=== PATIENT | female | born 1980 | race Hispanic/Latino ===

== ENCOUNTER 2018-03-10 10:39 | Observation (INO) | payer MEDICAID ==
--- NOTE | 2018-03-10 10:52 | ED PDOC ---
Arrival/HPI - General Time Seen by Provider: 03/10/18 10:44 Historian: Patient - History of Present Illness Narrative History of Present Illness (Text): 03/10/18 10:45 37 y/o female, pmh including nasal bone fracture, psychiaric history of alcohol abuse, nkda, c/o upper abdominal pain x 2 days. Aching and sharp pain, on and off, no nausea or vomiting, admits fever, no chest pain or shortness of breath, no night sweat, no rash, no objective fever, no coughing, no recent traveling. Pt. stated that she had total hysterectomy 02/11/2018 at [facility] [place] which with complication of bladder laceration?, quiroz for 3 weeks with 2 different types of oral antibiotics (pt. doesn't remember which ones), quiroz removed and on the macrobid now. Pt. has been taking motrin 800mg for the past 2 days for the chronic myalgia and back pain. Past Medical History - Provider Review Nursing Documentation Reviewed: Yes - Infectious Disease Hx of Infectious Diseases: None - Cardiac Hx Cardiac Disorders: No - Pulmonary Hx Respiratory Disorders: No - Neurological Hx Neurological Disorder: No - HEENT Hx HEENT Disorder: No - Renal Hx Renal Disorder: No - Endocrine/Metabolic Hx Endocrine Disorders: Yes Hx Hypothyroidism: Yes - Hematological/Oncological Hx Blood Disorders: No - Integumentary Hx Dermatological Disorder: No - Musculoskeletal/Rheumatological Hx Musculoskeletal Disorders: No - Gastrointestinal Hx Gastrointestinal Disorders: No - Genitourinary/Gynecological Hx Genitourinary Disorders: No - Psychiatric Hx Psychophysiologic Disorder: Yes Hx Depression: Yes (post ) Hx Substance Use: No - Surgical History Other/Comment: uterine fibroids, foot surgery - Anesthesia Hx Anesthesia: Yes Hx Anesthesia Reactions: No Hx Malignant Hyperthermia: No Family/Social History - Physician Review Nursing Documentation Reviewed: Yes Family/Social History: Unknown Family HX Smoking Status: Never Smoked Hx Alcohol Use: Yes Hx Substance Use: No Allergies/Home Meds Allergies/Adverse Reactions: Allergies No Known Allergies Allergy (Verified 03/10/18 10:54) Home Medications: Home Meds Medication Instructions Recorded Confirmed Meloxicam [Mobic] 7.5 mg PO DAILY 03/10/18 03/10/18 Nitrofurantoin Monohyd/M-Cryst 100 mg PO DAILY 03/10/18 03/10/18 [Nitrofurantoin Monohydrate/Macrocrystals] Quetiapine Fumarate [Seroquel] 25 mg PO BID 03/10/18 03/10/18 RX: DULoxetine [Cymbalta] 120 mg PO DAILY 03/10/18 03/10/18 RX: Gabapentin [Neurontin] 600 mg PO DAILY 03/10/18 03/10/18 Review of Systems - Review of Systems Constitutional: absent: Fatigue, Fevers Eyes: absent: Vision Changes ENT: absent: Hearing Changes, Rhinorrhea Respiratory: absent: SOB, Cough Gastrointestinal: Abdominal Pain. absent: Diarrhea, Nausea, Vomiting Skin: absent: Rash, Pruritis Neurological: absent: Headache Psychiatric: absent: Anxiety, Depression, Suicidal Ideation Physical Exam Vital Signs Reviewed: Yes Vital Signs Temp Pulse Resp BP Pulse Ox 03/10/18 14:01 106 H 18 119/65 99 03/10/18 12:49 99.3 F 102 H 18 114/67 100 03/10/18 10:54 98.2 F 109 H 19 115/78 100 Temperature: Afebrile Blood Pressure: Normal Pulse: Regular Respiratory Rate: Normal Appearance: Positive for: Well-Appearing, Non-Toxic, Comfortable Pain Distress: Moderate Mental Status: Positive for: Alert and Oriented X 3 - Systems Exam Head: Present: Atraumatic, Normocephalic Pupils: Present: PERRL Extroacular Muscles: Present: EOMI Conjunctiva: Present: Normal Mouth: Present: Moist Mucous Membranes Neck: Present: Normal Range of Motion Respiratory/Chest: Present: Clear to Auscultation, Good Air Exchange. No: Respiratory Distress, Accessory Muscle Use Cardiovascular: Present: Regular Rate and Rhythm, Normal S1, S2. No: Murmurs Abdomen: Present: Tenderness (+epigastric and epigastric, negative mcburney tenderness). No: Distention, Peritoneal Signs, Rebound, Guarding Back: Present: Normal Inspection. No: CVA Tenderness, Midline Tenderness, Paraspinal Tenderness, Pain with Leg Raise, Decubitus Ulcer Upper Extremity: Present: Normal Inspection. No: Cyanosis, Edema Lower Extremity: Present: Normal Inspection. No: Edema Neurological: Present: GCS=15, CN II-XII Intact, Speech Normal, Motor Func Grossly Intact, Gait Normal, Memory Normal Skin: Present: Warm, Dry, Normal Color. No: Rashes Psychiatric: Present: Alert, Oriented x 3, Normal Insight, Normal Concentration Medical Decision Making ED Course and Treatment: 03/10/18 10:55 -labs/lipase/alcohol/ua -abdominal sonogram -IVF/pepcid/zofran/morphine -Observe and reassess 03/10/18 13:58 -Urine hcg is negative -Abdominal sonogram show: Findings suggest mild fatty hepatic infiltration however other infiltrative hepatocellular disease process not excluded. -labs show no acute finding except wbc 14.5, Mg is 1.5 (MgSu 1gm IV ordered) -UA show +UTI, urine culture with IV rocephine ordered -Drug screen is positive for the cannabinoid. -Pt. fail the outpatient oral antibiotics treatment, fever and has abdominal pain from oral nsaids, will admit for pending urine culture and IV antibiotic. -Chris hospitalist. 03/10/18 14:08 -I spoke to DR. Lemons about the case/labs/radiology result, agreed on the admission and will follow up the culture, will admit to his service. -I discussed with DR. Reyes about the case, he will put in the admission order. - Lab Interpretations Lab Results: 03/10/18 11:10 03/10/18 11:10 Lab Results 03/10/18 11:11: Urine Opiates Screen Negative, Urine Methadone Screen Negative, Ur Barbiturates Screen Negative, Ur Phencyclidine Scrn Negative, Ur Amphetamines Screen Negative, U Benzodiazepines Scrn Negative, U Oth Cocaine Metabols Negative, U Cannabinoids Screen Positive H 03/10/18 11:10: WBC 14.5 H D, RBC 4.06, Hgb 11.5 L, Hct 34.9 L, MCV 86.0, MCH 28.3, MCHC 33.0, RDW 14.0, Plt Count 196, MPV 12.1 H, Gran % 73.2 H, Lymph % ( Auto) 15.4 L, [place] % (Auto) 10.3 H, Eos % (Auto) 0.8 L, Baso % (Auto) 0.3, Gran # 10.58 H, Lymph # (Auto) 2.2, [place] # (Auto) 1.5 H, Eos # (Auto) 0.1, Baso # ( Auto) 0.04 03/10/18 11:10: Salicylates < 1 L, Acetaminophen < 10.0 L 03/10/18 11:10: Sodium 137, Potassium 4.2, Chloride 101, Carbon Dioxide 24, Anion Gap 17, BUN 5 L, Creatinine 0.7, Est GFR ( Amer) > 60, Est GFR (Non -Af Amer) > 60, Random Glucose 154 H, Calcium 9.2, Magnesium 1.5 L, Total Bilirubin 0.7, AST 15, ALT 30, Alkaline Phosphatase 111, Total Creatine Kinase 62, Total Protein 7.5, Albumin 4.0, Globulin 3.5, Albumin/Globulin Ratio 1.2, Lipase 43 03/10/18 11:00: Urine Color Yellow, Urine Appearance Clear, Urine pH 6.0, Ur Specific [place] 1.025, Urine Protein 100 H, Urine Glucose (UA) Negative, Urine Ketones Negative, Urine Blood Trace-intact H, Urine Nitrate Positive H, Urine Bilirubin Negative, Urine Urobilinogen 0.2, Ur Leukocyte Esterase Large H, Urine RBC 1 - 3, Urine WBC Tntc, Ur Epithelial Cells Many, Urine Bacteria Mod I have reviewed the lab results: Yes Interpretation: Abnormal lab values - RAD Interpretation Radiology Orders: 03/10/18 11:03 ABDOMEN COMPLETE [US] Stat HISTORY: Upper abdominal pain COMPARISON: None. TECHNIQUE: Sonographic evaluation of the abdomen. FINDINGS: LIVER: Measures 15.2 cm. Smooth contour with slight increased hepatic echotexture suggesting fatty infiltration however other infiltrative hepatic cellular disease process not excluded. . No hepatic masses seen on images presented. . No significant intrahepatic bile duct dilatation. GALLBLADDER: Unremarkable. No gallstones. No pericholecystic fluid collections. No evidence sonographic Smith sign COMMON BILE DUCT: Measures 2.9 mm. No stones. No dilatation. PANCREAS: Unremarkable as visualized. No mass. No ductal dilatation. RIGHT KIDNEY: Measures 11.5 x 4.2 x 5.0cm. Normal echogenicity. No calculus, mass, or hydronephrosis. LEFT KIDNEY: Measures 10.4 x 6.1 x 5.0 cm. Normal echogenicity. No calculus, mass, or hydronephrosis. SPLEEN: Spleen is upper limits of normal in size measuring approximately 12 cm. Spleen exhibits normal contour and echotexture. No splenic masses seen on images presented. AORTA: Aorta not visualized IVC: IVC not visualized OTHER FINDINGS: None. IMPRESSION: Findings suggest mild fatty hepatic infiltration however other infiltrative hepatocellular disease process not excluded. Electric Fork Operator: Radiologist - Medication Orders Current Medication Orders: Discontinued Medications Acetaminophen (Tylenol 325mg Tab) 650 mg PO STAT STA Stop: 03/10/18 13:38 Last Admin: 03/10/18 14:01 Dose: 650 mg MAR Pain/Vitals Document 03/10/18 14:01 JESSICA (Rec: 03/10/18 14:01 JESSICA GORDON-PC) Pain Reassessment Is This A Pain ReAssessment? No Sleep Is patient sleeping during reassessment? No Presence of Pain Presence of Pain Yes Famotidine (Pepcid) 20 mg IVP STAT STA Stop: 03/10/18 10:58 Last Admin: 03/10/18 11:31 Dose: 20 mg IVP Administration Document 03/10/18 11:31 JESSICA (Rec: 03/10/18 11:31 JESSICA GORDON-PC) Charges for Administration # of IVP Administrations 1 Sodium Chloride (Sodium Chloride 0.9%) 1,000 mls @ 999 mls/hr IV .Q1H1M STA Stop: 03/10/18 11:57 Last Admin: 03/10/18 11:30 Dose: 999 mls/hr eMAR Start Stop Document 03/10/18 11:30 JESSICA (Rec: 03/10/18 11:30 JESSICA GORDON-PC) Intravenous Solution Start Date 03/10/18 Start Time 11:30 End Date 03/10/18 End time 12:30 Total Infusion Time 60 Magnesium Sulfate/Dextrose (Magnesium Sulfate 1 Gm/100 Ml D5w) 1 gm in 100 mls @ 100 mls/hr IVPB ONCE ONE Stop: 03/10/18 13:12 Last Admin: 03/10/18 13:07 Dose: 100 mls/hr eMAR Start Stop Document 03/10/18 13:07 JESSICA (Rec: 03/10/18 13:07 JESSICA GORDON-PC) Intravenous Solution Start Date 03/10/18 Start Time 13:07 End Date 03/10/18 End time 14:07 Total Infusion Time 60 Ceftriaxone Sodium (Rocephin 1 Gram Ivpb) 1 gm in 100 mls @ 200 mls/hr IVPB STAT STA PRN Reason: Protocol Stop: 03/10/18 12:43 Last Admin: 03/10/18 12:42 Dose: 200 mls/hr eMAR Start Stop Document 03/10/18 12:42 JESSICA (Rec: 03/10/18 12:42 JESSICA GORDON-PC) Intravenous Solution Start Date 03/10/18 Start Time 12:42 End Date 03/10/18 End time 13:15 Total Infusion Time 33 Morphine Sulfate (Morphine) 5 mg IVP STAT STA Stop: 03/10/18 11:27 Last Admin: 03/10/18 11:32 Dose: 5 mg [facility] Pain Assessment Document 03/10/18 11:32 SZA (Rec: 03/10/18 11:33 JESSICA GORDON-PC) Pain Reassessment Is this a pain reassessment? No Sleep Is patient sleeping during reassessment? No Presence of Pain Presence of Pain Yes IVP Administration Document 03/10/18 11:32 JESSICA (Rec: 03/10/18 11:33 JESSICA GORDON-PC) Charges for Administration # of IVP Administrations 1 Re-Assess: THIAGO Pain Assessment Document 03/10/18 12:32 SZA (Rec: 03/10/18 13:08 JESSICA GORDON-PC) Pain Reassessment Is this a pain reassessment? No Sleep Is patient sleeping during reassessment? No Presence of Pain Presence of Pain Yes Pain Scale Used Pain Scale Used Numeric Description Description Intermittent Intensity of Pain at present 4 Ondansetron HCl (Zofran Inj) 4 mg IVP STAT STA Stop: 03/10/18 10:58 Last Admin: 03/10/18 11:30 Dose: 4 mg IVP Administration Document 03/10/18 11:30 SZJamey (Rec: 03/10/18 11:31 JESSICA [id number]) Charges for Administration # of IVP Administrations 1 - PA / ELECTRICAL DESIGNER DRAFTER / Resident Statement MD/DO has reviewed & agrees with the documentation as recorded. Disposition/Present on Arrival - Present on Arrival Any Indicators Present on Arrival: No History of DVT/PE: No History of Uncontrolled Diabetes: No Urinary Catheter: No History of Decub. Ulcer: No History Surgical Site Infection Following: None - Disposition Have Diagnosis and Disposition been Completed?: Yes Diagnosis: UTI (urinary tract infection), Failure of outpatient treatment, Leukocytosis Disposition: HOSPITALIZED Disposition Time: 10:56 Patient Plan: Admission, Observation Patient Problems: Current Active Problems Problem Status Onset UTI (urinary tract infection) Acute Failure of outpatient treatment Acute Leukocytosis Acute Condition: STABLE
[2018-03-10 10:55] VITALS: BMI 29.9
[2018-03-10] MEDS ORDERED: Sodium Chloride 0.9% 1,000 ML IV STA (10:57)
[2018-03-10 11:17] LABS: URINE BILIRUBIN NEGATIVE (NEGATIVE); URINE BLOOD TRACE-INTACT (NEGATIVE); URINE GLUCOSE (UA) NEGATIVE (NEGATIVE); URINE LEUKOCYTE ESTERASE LARGE Leu/uL (NEGATIVE); URINE PROTEIN 100 mg/dL (<30 mg/dL); URINE UROBILINOGEN 0.2 E.U./dL (<1 E.U./dL)
[2018-03-10 11:18] LABS: URINE APPEARANCE CLEAR (CLEAR); URINE COLOR YELLOW (YELLOW)
[2018-03-10 11:26] LABS: URINE BACTERIA MOD (NEG); URINE EPITHELIAL CELLS MANY /hpf (0-5); URINE WBC TNTC /hpf (0-6)
[2018-03-10 11:49] LABS: BASO # 0.04 K/mm3 (0.0-2.0); BASO % 0.3 % (0.0-3.0); EOS # 0.1 (0.0-0.7); EOS % 0.8 % (1.5-5.0); GRAN # 10.58 (1.4-6.5); GRAN % 73.2 % (50.0-68.0); HEMOGLOBIN 11.5 g/dL (12.0-16.0); LYMPH # 2.2 (1.2-3.4); LYMPH % 15.4 % (22.0-35.0); MEAN CORPUSCULAR HEMOGLOBIN 28.3 pg (25.0-35.0); MEAN PLATELET VOLUME 12.1 fl (7.0-11.0); MONO # 1.5 (0.1-0.6); MONO % 10.3 % (1.0-6.0); RBC 4.06 10^6/uL (3.5-6.1); WHITE BLOOD COUNT 14.5 10^3/ul (4.5-11.0)
[2018-03-10 12:09] LABS: ALB/GLOB RATIO 1.2 (1.1-1.8); ALT/SGPT 30 U/L (7-56); AST/SGOT 15 U/L (14-36); BLOOD UREA NITROGEN 5 mg/dL (7-21); CALCIUM 9.2 mg/dL (8.4-10.5); GFR AFRICAN-AMERICAN > 60; GFR NON-AFRICAN AMERICAN > 60; LIPASE 43 U/L (23-300)
[2018-03-10] MEDS ORDERED: Magnesium Sulfate 1 gm in D5W 1 GM/100 ML BAG IVPB ONE (12:13)
[2018-03-10] MEDS ORDERED: cefTRIAXone 1 gm 1 GM/100 ML BAG IVPB STA (12:14)
[2018-03-10 12:20] LABS: BARBITURATES, UR NEGATIVE (NEGATIVE); BENZODIAZEPINES, UR NEGATIVE (NEGATIVE); OPIATES, UR NEGATIVE (NEGATIVE); PHENCYCLIDINE, UR NEGATIVE (NEGATIVE)
[2018-03-10 12:47] LABS: ACETAMINOPHEN < 10.0 ug/ml (10.0-20.0); SALICYLATE < 1 mg/dL (2.0-20.0)
--- NOTE | 2018-03-10 13:57 | US ---
HISTORY: Upper abdominal pain COMPARISON: None. TECHNIQUE: Sonographic evaluation of the abdomen. FINDINGS: LIVER: Measures 15.2 cm. Smooth contour with slight increased hepatic echotexture suggesting fatty infiltration however other infiltrative hepatic cellular disease process not excluded. . No hepatic masses seen on images presented. . No significant intrahepatic bile duct dilatation. GALLBLADDER: Unremarkable. No gallstones. No pericholecystic fluid collections. No evidence sonographic Smith sign COMMON BILE DUCT: Measures 2.9 mm. No stones. No dilatation. PANCREAS: Unremarkable as visualized. No mass. No ductal dilatation. RIGHT KIDNEY: Measures 11.5 x 4.2 x 5.0cm. Normal echogenicity. No calculus, mass, or hydronephrosis. LEFT KIDNEY: Measures 10.4 x 6.1 x 5.0 cm. Normal echogenicity. No calculus, mass, or hydronephrosis. SPLEEN: Spleen is upper limits of normal in size measuring approximately 12 cm. Spleen exhibits normal contour and echotexture. No splenic masses seen on images presented. AORTA: Aorta not visualized IVC: IVC not visualized OTHER FINDINGS: None. IMPRESSION: Findings suggest mild fatty hepatic infiltration however other infiltrative hepatocellular disease process not excluded.
--- NOTE | 2018-03-10 14:57 | CP.PCM.HP ---
<Jaskaran Avelar - Last Filed: 03/10/18 14:52> History of Present Illness - History of Present Illness History of Present Illness: 37 year old female with past medical history of fibromyalgia and depression presents to the hospital for 2 day history of abdominal pain. Patient states pain started at rest and woke her from sleep. Pain is nonradiating and rated 6/ 10. Pain is intermittent and described as sharp in nature. Patient took ibuprofen for pain, but it did not help. Patient underwent hysterectomy 1 month ago at [facility] [place] due to heavy menses. Patient had chronic indwelling quiroz for 3 weeks and was removed 1 week ago. Patient was prescribed Macrobid at this time. Today, patient admits to pain and discomfort upon urination. Patient also admits to subjective fever at home. Abdominal pain not associated with eating. Denies chest pain, shortness of breath, nausea, vomiting, diarrhea, syncope, hematuria, headache, changes in vision. PMD: Dr. Vasquez PMH: Fibromyalgia, depression PSH: uterine cyst removal, bunion removal, hysterectomy FMH: Noncontributory Allergies: NKDA Social hx: Former alcohol abuse, sober 1 year. 1/2 ppd x 1 year. Occasional marijuana use. Present on Admission - Present on Admission Any Indicators Present on Admission: No Review of Systems - Review of Systems Review of Systems: 12 point ROS as per HPI, otherwise negative Past Patient History - Infectious Disease Hx of Infectious Diseases: None - Past Social History Smoking Status: Never Smoked - CARDIAC Hx Cardiac Disorders: No - PULMONARY Hx Respiratory Disorders: No - NEUROLOGICAL Hx Neurological Disorder: No - HEENT Hx HEENT Problems: No - RENAL Hx Chronic Kidney Disease: No - ENDOCRINE/METABOLIC Hx Endocrine Disorders: Yes Hx Hypothyroidism: Yes - HEMATOLOGICAL/ONCOLOGICAL Hx Blood Disorders: No - INTEGUMENTARY Hx Dermatological Problems: No - MUSCULOSKELETAL/RHEUMATOLOGICAL Hx Musculoskeletal Disorders: No - GASTROINTESTINAL Hx Gastrointestinal Disorders: No - GENITOURINARY/GYNECOLOGICAL Hx Genitourinary Disorders: No - PSYCHIATRIC Hx Psychophysiologic Disorder: Yes Hx Depression: Yes (post ) Hx Substance Use: No - SURGICAL HISTORY Other/Comment: uterine fibroids, foot surgery - ANESTHESIA Hx Anesthesia: Yes Hx Anesthesia Reactions: No Hx Malignant Hyperthermia: No Meds Allergies/Adverse Reactions: Allergies Allergy/AdvReac Type Severity Reaction Status Date / Time No Known Allergies Allergy Verified 03/10/18 10:54 Physical Exam - Constitutional Appears: Non-toxic, No Acute Distress - Head Exam Head Exam: ATRAUMATIC, NORMAL INSPECTION, NORMOCEPHALIC - Eye Exam Eye Exam: EOMI, Normal appearance, PERRL - ENT Exam ENT Exam: Mucous Membranes Moist, Normal Exam - Respiratory Exam Respiratory Exam: Clear to Auscultation Bilateral, NORMAL BREATHING PATTERN - Cardiovascular Exam Cardiovascular Exam: RRR, +S1, +S2 - GI/Abdominal Exam GI & Abdominal Exam: Normal Bowel Sounds, Soft. absent: Distended, Firm, Guarding, Rebound Additional comments: Tenderness to palpation in suprapubic region - Extremities Exam Extremities exam: Positive for: normal inspection - Back Exam Back exam: absent: CVA tenderness (L), CVA tenderness (R) - Neurological Exam Neurological exam: Alert, CN II-XII Intact, Oriented x3 - Psychiatric Exam Psychiatric exam: Normal Affect, Normal Mood - Skin Skin Exam: Intact, Normal Color, Warm Results - Vital Signs Recent Vital Signs: Last Vital Signs Temp 99.3 F 03/10/18 12:49 Pulse 106 H 03/10/18 14:01 Resp 18 03/10/18 14:01 BP 119/65 03/10/18 14:01 Pulse Ox 99 03/10/18 14:01 - Labs Result Diagrams: 03/10/18 11:10 03/10/18 11:10 Labs: Laboratory Results - last 24 hr 03/10/18 03/10/18 03/10/18 11:00 11:10 11:10 WBC RBC Hgb Hct MCV MCH MCHC RDW Plt Count MPV Gran % Lymph % (Auto) [place] % (Auto) Eos % (Auto) Baso % (Auto) Gran # Lymph # (Auto) [place] # (Auto) Eos # (Auto) Baso # (Auto) Sodium 137 Potassium 4.2 Chloride 101 Carbon Dioxide 24 Anion Gap 17 BUN 5 L Creatinine 0.7 Est GFR ( Amer) > 60 Est GFR (Non-Af Amer) > 60 Random Glucose 154 H Calcium 9.2 Magnesium 1.5 L Total Bilirubin 0.7 AST 15 ALT 30 Alkaline Phosphatase 111 Total Creatine Kinase 62 Total Protein 7.5 Albumin 4.0 Globulin 3.5 Albumin/Globulin Ratio 1.2 Lipase 43 Urine Color Yellow Urine Appearance Clear Urine pH 6.0 Ur Specific [place] 1.025 Urine Protein 100 H Urine Glucose (UA) Negative Urine Ketones Negative Urine Blood Trace-intact H Urine Nitrate Positive H Urine Bilirubin Negative Urine Urobilinogen 0.2 Ur Leukocyte Esterase Large H Urine RBC 1 - 3 Urine WBC Tntc Ur Epithelial Cells Many Urine Bacteria Mod Salicylates < 1 L Urine Opiates Screen Urine Methadone Screen Acetaminophen < 10.0 L Ur Barbiturates Screen Ur Phencyclidine Scrn Ur Amphetamines Screen U Benzodiazepines Scrn U Oth Cocaine Metabols U Cannabinoids Screen 03/10/18 03/10/18 11:10 11:11 WBC 14.5 H D RBC 4.06 Hgb 11.5 L Hct 34.9 L MCV 86.0 MCH 28.3 MCHC 33.0 RDW 14.0 Plt Count 196 MPV 12.1 H Gran % 73.2 H Lymph % (Auto) 15.4 L [place] % (Auto) 10.3 H Eos % (Auto) 0.8 L Baso % (Auto) 0.3 Gran # 10.58 H Lymph # (Auto) 2.2 [place] # (Auto) 1.5 H Eos # (Auto) 0.1 Baso # (Auto) 0.04 Sodium Potassium Chloride Carbon Dioxide Anion Gap BUN Creatinine Est GFR ( Amer) Est GFR (Non-Af Amer) Random Glucose Calcium Magnesium Total Bilirubin AST ALT Alkaline Phosphatase Total Creatine Kinase Total Protein Albumin Globulin Albumin/Globulin Ratio Lipase Urine Color Urine Appearance Urine pH Ur Specific [place] Urine Protein Urine Glucose (UA) Urine Ketones Urine Blood Urine Nitrate Urine Bilirubin Urine Urobilinogen Ur Leukocyte Esterase Urine RBC Urine WBC Ur Epithelial Cells Urine Bacteria Salicylates Urine Opiates Screen Negative Urine Methadone Screen Negative Acetaminophen Ur Barbiturates Screen Negative Ur Phencyclidine Scrn Negative Ur Amphetamines Screen Negative U Benzodiazepines Scrn Negative U Oth Cocaine Metabols Negative U Cannabinoids Screen Positive H Assessment & Plan - Assessment and Plan (Free Text) Plan: 37 year old female with past medical history of fibromyalgia and depression presents with complicated UTI. Patient failed outpatient treatment with Macrobid. Will await cultures and treat with empiric antibiotics. 1. Complicated UTI Rocephin Blood and urine cultures 2. Fibromyalgia Restart home regimen of Cymbalta and Gabapentin Toradol prn for pain 3. Depression Seroquel 4. Prophylaxis Protonix SCDs Rosio, PGY-2 <Bao Lemons A - Last Filed: 03/10/18 15:29> Results - Vital Signs Recent Vital Signs: Last Vital Signs Temp 99.3 F 03/10/18 12:49 Pulse 106 H 03/10/18 14:01 Resp 18 03/10/18 14:01 BP 119/65 03/10/18 14:01 Pulse Ox 99 03/10/18 14:01 - Labs Result Diagrams: 03/10/18 11:10 03/10/18 11:10 Attending/Attestation - Attestation I have personally seen and examined this patient.: Yes I have fully participated in the care of the patient.: Yes I have reviewed all pertinent clinical information: Yes Notes (Text): 03/10/18 15:26 37 year old female with past medical history of fibromyalgia, depression and recent hysterectomy with chronic quiroz which was recently removed presents with complaint of abdominal pain; found to have UTI. She was recently on macrobid for UTI. She is started on rocephin while awaiting Ucx. Leukocytosis likely secondary to above. US abdomen showed mild fatty infiltrate. Continue with home medications for depression and fibromyalgia. Bao Lemons MD Hospitalist.
[2018-03-11] MEDS ORDERED: Pantoprazole 40 mg EC Tab PO SCH (06:00)
[2018-03-11 07:03] LABS: HEMOGLOBIN 10.4 g/dL (12.0-16.0); MEAN CELL VOLUME 86.1 fl (80.0-105.0); MEAN CORPUSCULAR HEMOGLOBIN 27.7 pg (25.0-35.0); MEAN CORPUSCULAR HGB CONC 32.2 g/dl (31.0-37.0); MEAN PLATELET VOLUME 12.1 fl (7.0-11.0); RBC 3.75 10^6/uL (3.5-6.1); RED CELL DISTRIBUTION WIDTH 13.9 % (11.5-14.5); WHITE BLOOD COUNT 11.2 10^3/ul (4.5-11.0)
[2018-03-11 08:19] LABS: ALBUMIN 3.5 g/dL (3.0-4.8); ALT/SGPT 29 U/L (7-56); AST/SGOT 19 U/L (14-36); BLOOD UREA NITROGEN 9 mg/dL (7-21); CALCIUM 8.5 mg/dL (8.4-10.5); GFR AFRICAN-AMERICAN > 60; GFR NON-AFRICAN AMERICAN > 60
[2018-03-11 08:37] VITALS: BP 125/81; PULSE 72; RESP 20; TEMP 98.2; O2SAT 100
[2018-03-11] MEDS ORDERED: cefTRIAXone 1 gm 1 GM/100 ML BAG IVPB SCH (10:00)
--- NOTE | 2018-03-11 10:52 | CP.PCM.DIS ---
<Jay Rosas - Last Filed: 03/11/18 13:34> Provider - Provider Date of Admission: 03/10/18 14:16 Attending physician: Bao Lemons MD Time Spent in preparation of Discharge (in minutes): 40 Diagnosis - Discharge Diagnosis (1) Failure of outpatient treatment Status: Acute Priority: High (2) Leukocytosis Status: Acute Priority: Medium (3) UTI (urinary tract infection) Status: Acute Priority: Medium Hospital Course - Lab Results Lab Results: Most Recent Lab Values WBC 11.2 10^3/ul (4.5-11.0) H D 03/11/18 06:40 RBC 3.75 10^6/uL (3.5-6.1) 03/11/18 06:40 Hgb 10.4 g/dL (12.0-16.0) L 03/11/18 06:40 Hct 32.3 % (36.0-48.0) L 03/11/18 06:40 MCV 86.1 fl (80.0-105.0) 03/11/18 06:40 MCH 27.7 pg (25.0-35.0) 03/11/18 06:40 MCHC 32.2 g/dl (31.0-37.0) 03/11/18 06:40 RDW 13.9 % (11.5-14.5) 03/11/18 06:40 Plt Count 158 10^3/uL (120.0-450.0) 03/11/18 06:40 MPV 12.1 fl (7.0-11.0) H 03/11/18 06:40 Gran % 73.2 % (50.0-68.0) H 03/10/18 11:10 Lymph % (Auto) 15.4 % (22.0-35.0) L 03/10/18 11:10 Centre % (Auto) 10.3 % (1.0-6.0) H 03/10/18 11:10 Eos % (Auto) 0.8 % (1.5-5.0) L 03/10/18 11:10 Baso % (Auto) 0.3 % (0.0-3.0) 03/10/18 11:10 Gran # 10.58 (1.4-6.5) H 03/10/18 11:10 Lymph # (Auto) 2.2 (1.2-3.4) 03/10/18 11:10 Centre # (Auto) 1.5 (0.1-0.6) H 03/10/18 11:10 Eos # (Auto) 0.1 (0.0-0.7) 03/10/18 11:10 Baso # (Auto) 0.04 K/mm3 (0.0-2.0) 03/10/18 11:10 Sodium 139 mmol/L (132-148) 03/11/18 06:40 Potassium 4.5 mmol/L (3.6-5.0) 03/11/18 06:40 Chloride 105 mmol/L (98-107) 03/11/18 06:40 Carbon Dioxide 25 mmol/L (21-33) 03/11/18 06:40 Anion Gap 14 (10-20) 03/11/18 06:40 BUN 9 mg/dL (7-21) 03/11/18 06:40 Creatinine 0.7 mg/dl (0.7-1.2) 03/11/18 06:40 Est GFR ( Amer) > 60 03/11/18 06:40 Est GFR (Non-Af Amer) > 60 03/11/18 06:40 Random Glucose 164 mg/dL (70-110) H 03/11/18 06:40 Calcium 8.5 mg/dL (8.4-10.5) 03/11/18 06:40 Magnesium 1.8 mg/dL (1.7-2.2) 03/11/18 06:40 Total Bilirubin 0.4 mg/dL (0.2-1.3) 03/11/18 06:40 AST 19 U/L (14-36) 03/11/18 06:40 ALT 29 U/L (7-56) 03/11/18 06:40 Alkaline Phosphatase 115 U/L (38-126) 03/11/18 06:40 Total Creatine Kinase 62 U/L (35-230) 03/10/18 11:10 Total Protein 6.9 g/dL (5.8-8.3) 03/11/18 06:40 Albumin 3.5 g/dL (3.0-4.8) 03/11/18 06:40 Globulin 3.4 gm/dL 03/11/18 06:40 Albumin/Globulin Ratio 1.0 (1.1-1.8) L 03/11/18 06:40 Lipase 43 U/L (23-300) 03/10/18 11:10 Urine Color Yellow (YELLOW) 03/10/18 11:00 Urine Appearance Clear (CLEAR) 03/10/18 11:00 Urine pH 6.0 (4.7-8.0) 03/10/18 11:00 Ur Specific Danube 1.025 (1.005-1.035) 03/10/18 11:00 Urine Protein 100 mg/dL (<30 mg/dL) H 03/10/18 11:00 Urine Glucose (UA) Negative mg/dL (NEGATIVE) 03/10/18 11:00 Urine Ketones Negative mg/dL (NEGATIVE) 03/10/18 11:00 Urine Blood Trace-intact (NEGATIVE) H 03/10/18 11:00 Urine Nitrate Positive (NEGATIVE) H 03/10/18 11:00 Urine Bilirubin Negative (NEGATIVE) 03/10/18 11:00 Urine Urobilinogen 0.2 E.U./dL (<1 E.U./dL) 03/10/18 11:00 Ur Leukocyte Esterase Large Adriana/uL (NEGATIVE) H 03/10/18 11:00 Urine RBC 1 - 3 /hpf (0-2) 03/10/18 11:00 Urine WBC Tntc /hpf (0-6) 03/10/18 11:00 Ur Epithelial Cells Many /hpf (0-5) 03/10/18 11:00 Urine Bacteria Mod (NEG) 03/10/18 11:00 Salicylates < 1 mg/dL (2.0-20.0) L 03/10/18 11:10 Urine Opiates Screen Negative (NEGATIVE) 03/10/18 11:11 Urine Methadone Screen Negative (NEGATIVE) 03/10/18 11:11 Acetaminophen < 10.0 ug/ml (10.0-20.0) L 03/10/18 11:10 Ur Barbiturates Screen Negative (NEGATIVE) 03/10/18 11:11 Ur Phencyclidine Scrn Negative (NEGATIVE) 03/10/18 11:11 Ur Amphetamines Screen Negative (NEGATIVE) 03/10/18 11:11 U Benzodiazepines Scrn Negative (NEGATIVE) 03/10/18 11:11 U Oth Cocaine Metabols Negative (NEGATIVE) 03/10/18 11:11 U Cannabinoids Screen Positive (NEGATIVE) H 03/10/18 11:11 - Hospital Course Hospital Course: Patient is 37 F with history of fibromyalgia who presented to the [facility] emergency department with complaints of dysuria and suprapubic pain s/p quiroz removal #2. 4 weeks prior patient had a hysterectomy at [facility] which was complicated with ureter damage. 2 days after hysterectomy patient underwent ureteral stent placement by urology. Patient then went to [facility] emergency department for two episodes of hematuria. Patient went a third time for voiding cystouregram which was negative, had quiroz removed and then began experiencing fevers and suprapubic pain two days after which made her decide to come to the [facility] emergency department for further evaluation. Urinalysis was done which revealed urinary tract infection; to note patient was placed on macrobid during her course of stay at [facility], however with the continued presence of nitrates and WBCs in urine patient was treated for failed outpatient treatment and was therefore started on rocephin. Patient's WBC count is decreasing and patient is no longer experiencing signs of UTI (lack of fever, dysuria, and suprapubic pain ). Therefore patient will be discharged with a script for levaquin. Will order EKG for baseline QTc before prescribing levaquin. Will instruct patient to not partake in intense physical activity while being on levaquin. Will update patient on urine cultures and if positive will discuss change of therapy. Patient endorses upper epigastric pain. Recommended protonix since patient as of late has been consuming ibuprofen for her urinary pain as well as mobic for her arthritic pain. Plan of discharge was discussed with patient and patient was then discharged. Case discussed with Dr. Vesta Rosas PGY1 Discharge Exam - Head Exam Head Exam: ATRAUMATIC, NORMAL INSPECTION, NORMOCEPHALIC - Eye Exam Eye Exam: EOMI, Normal appearance - Respiratory Exam Respiratory Exam: NORMAL BREATHING PATTERN, UNREMARKABLE. absent: Decreased Breath Sounds, Wheezes - Cardiovascular Exam Cardiovascular Exam: REGULAR RHYTHM, +S1, +S2 - GI/Abdominal Exam GI & Abdominal Exam: Normal Bowel Sounds, Unremarkable - Back Exam Back exam: NORMAL INSPECTION, tenderness. absent: rash noted - Neurological Exam Neurological exam: Alert, CN II-XII Intact, Oriented x3 - Psychiatric Exam Psychiatric exam: Normal Affect, Normal Mood - Skin Skin Exam: Normal Color, Warm Discharge Plan - Discharge Medications Prescriptions: levoFLOXacin [Levaquin] 750 mg PO DAILY #5 tab Pantoprazole [Protonix] 40 mg PO DAILY #14 ect - Follow Up Plan Condition: STABLE Disposition: HOME/ ROUTINE Instructions: Heart Healthy Diet, Why Vaccines Are Important for Everyone, Urinary Tract Infection in Women (DC), Leukocytosis (DC), Dysuria (GEN) Additional Instructions: Ms. Higgins, thank you for letting us take care of you today. Your provider was Dr. Rosas. You were treated for your urinary tract infection which failed outpatient therapy initially. The emergency medical care you received today was directed at your acute symptoms. If you were prescribed any medication, please fill it and take as directed. It may take several days for your symptoms to resolve. Return to the Emergency Department if your symptoms worsen, do not improve, or if you have any other problems. Please contact your doctor or call one of the physicians/clinics you have been referred to that are listed on the Patient Visit Information form that is included in your discharge packet. Bring any paperwork you were given at discharge with you along with any medications you are taking to your follow up visit. Our treatment cannot replace ongoing medical care by a primary care provider (PCP) outside of the emergency department. Things to keep in mind: 1) Be careful with physical activity as levaquin can increases chances of tendon injury. 2)Start taking protonix to overcome gastrointestinal upset caused by taking mobic and ibuprofen. 3)Remember to follow up with your OBGYN and Urologist. Thank you for allowing the [facility] team to be part of your care today. If you had an X-Ray or CT scan: A Radiologist will review the ED reading if any change in treatment is needed we will contact you. If you had a blood, urine, or wound culture: It will take several days for the results, if any change in treatment is needed we will contact you. If you had an STI test: It will take 48 hours for the results. Please call after 1 week if you have not heard back. Referrals: Talon Hahn MD [Staff Provider] - <Bao Lemons - Last Filed: 03/11/18 13:55> Provider - Provider Date of Admission: 03/10/18 14:16 Attending physician: Bao Lemons MD Hospital Course - Lab Results Lab Results: Most Recent Lab Values WBC 11.2 10^3/ul (4.5-11.0) H D 03/11/18 06:40 RBC 3.75 10^6/uL (3.5-6.1) 03/11/18 06:40 Hgb 10.4 g/dL (12.0-16.0) L 03/11/18 06:40 Hct 32.3 % (36.0-48.0) L 03/11/18 06:40 MCV 86.1 fl (80.0-105.0) 03/11/18 06:40 MCH 27.7 pg (25.0-35.0) 03/11/18 06:40 MCHC 32.2 g/dl (31.0-37.0) 03/11/18 06:40 RDW 13.9 % (11.5-14.5) 03/11/18 06:40 Plt Count 158 10^3/uL (120.0-450.0) 03/11/18 06:40 MPV 12.1 fl (7.0-11.0) H 03/11/18 06:40 Gran % 73.2 % (50.0-68.0) H 03/10/18 11:10 Lymph % (Auto) 15.4 % (22.0-35.0) L 03/10/18 11:10 Centre % (Auto) 10.3 % (1.0-6.0) H 03/10/18 11:10 Eos % (Auto) 0.8 % (1.5-5.0) L 03/10/18 11:10 Baso % (Auto) 0.3 % (0.0-3.0) 03/10/18 11:10 Gran # 10.58 (1.4-6.5) H 03/10/18 11:10 Lymph # (Auto) 2.2 (1.2-3.4) 03/10/18 11:10 Centre # (Auto) 1.5 (0.1-0.6) H 03/10/18 11:10 Eos # (Auto) 0.1 (0.0-0.7) 03/10/18 11:10 Baso # (Auto) 0.04 K/mm3 (0.0-2.0) 03/10/18 11:10 Sodium 139 mmol/L (132-148) 03/11/18 06:40 Potassium 4.5 mmol/L (3.6-5.0) 03/11/18 06:40 Chloride 105 mmol/L (98-107) 03/11/18 06:40 Carbon Dioxide 25 mmol/L (21-33) 03/11/18 06:40 Anion Gap 14 (10-20) 03/11/18 06:40 BUN 9 mg/dL (7-21) 03/11/18 06:40 Creatinine 0.7 mg/dl (0.7-1.2) 03/11/18 06:40 Est GFR ( Amer) > 60 03/11/18 06:40 Est GFR (Non-Af Amer) > 60 03/11/18 06:40 Random Glucose 164 mg/dL (70-110) H 03/11/18 06:40 Calcium 8.5 mg/dL (8.4-10.5) 03/11/18 06:40 Magnesium 1.8 mg/dL (1.7-2.2) 03/11/18 06:40 Total Bilirubin 0.4 mg/dL (0.2-1.3) 03/11/18 06:40 AST 19 U/L (14-36) 03/11/18 06:40 ALT 29 U/L (7-56) 03/11/18 06:40 Alkaline Phosphatase 115 U/L (38-126) 03/11/18 06:40 Total Creatine Kinase 62 U/L (35-230) 03/10/18 11:10 Total Protein 6.9 g/dL (5.8-8.3) 03/11/18 06:40 Albumin 3.5 g/dL (3.0-4.8) 03/11/18 06:40 Globulin 3.4 gm/dL 03/11/18 06:40 Albumin/Globulin Ratio 1.0 (1.1-1.8) L 03/11/18 06:40 Lipase 43 U/L (23-300) 03/10/18 11:10 Urine Color Yellow (YELLOW) 03/10/18 11:00 Urine Appearance Clear (CLEAR) 03/10/18 11:00 Urine pH 6.0 (4.7-8.0) 03/10/18 11:00 Ur Specific Danube 1.025 (1.005-1.035) 03/10/18 11:00 Urine Protein 100 mg/dL (<30 mg/dL) H 03/10/18 11:00 Urine Glucose (UA) Negative mg/dL (NEGATIVE) 03/10/18 11:00 Urine Ketones Negative mg/dL (NEGATIVE) 03/10/18 11:00 Urine Blood Trace-intact (NEGATIVE) H 03/10/18 11:00 Urine Nitrate Positive (NEGATIVE) H 03/10/18 11:00 Urine Bilirubin Negative (NEGATIVE) 03/10/18 11:00 Urine Urobilinogen 0.2 E.U./dL (<1 E.U./dL) 03/10/18 11:00 Ur Leukocyte Esterase Large Adriana/uL (NEGATIVE) H 03/10/18 11:00 Urine RBC 1 - 3 /hpf (0-2) 03/10/18 11:00 Urine WBC Tntc /hpf (0-6) 03/10/18 11:00 Ur Epithelial Cells Many /hpf (0-5) 03/10/18 11:00 Urine Bacteria Mod (NEG) 03/10/18 11:00 Salicylates < 1 mg/dL (2.0-20.0) L 03/10/18 11:10 Urine Opiates Screen Negative (NEGATIVE) 03/10/18 11:11 Urine Methadone Screen Negative (NEGATIVE) 03/10/18 11:11 Acetaminophen < 10.0 ug/ml (10.0-20.0) L 03/10/18 11:10 Ur Barbiturates Screen Negative (NEGATIVE) 03/10/18 11:11 Ur Phencyclidine Scrn Negative (NEGATIVE) 03/10/18 11:11 Ur Amphetamines Screen Negative (NEGATIVE) 03/10/18 11:11 U Benzodiazepines Scrn Negative (NEGATIVE) 03/10/18 11:11 U Oth Cocaine Metabols Negative (NEGATIVE) 03/10/18 11:11 U Cannabinoids Screen Positive (NEGATIVE) H 03/10/18 11:11 Attending/Attestation - Attestation I have personally seen and examined this patient.: Yes I have fully participated in the care of the patient.: Yes I have reviewed all pertinent clinical information, including history, physical exam and plan: Yes Notes (Text): 03/11/18 13:51 37 year old female with past medical history of fibromyalgia, depression and recent hysterectomy with chronic quiroz which was recently removed presented with complaint of epigastric and suprapubic pain. US abdomen showed mild fatty infiltrate. She was found to have UTI and started on rocephin. The following day her symptoms and leukocytosis improved. She is discharged home to follow up with her pmd, urologist and OB/rough patcher. Continue with antibiotics as prescribed; will call with results of her urine culture. Recommended to limit NSAID use, educated on risks of gastritis. Started on PPI and recommended if epigastric pain persists follow up with GI for possible EGD. Bao Lemons MD Hospitalist.
--- NOTE | 2018-03-11 13:04 | CARD ---
APPROVED REPORT EKG Measurement Heart [id number] ID [id number] <Conclusion> Normal sinus rhythm Q in 3 WNL
[2018-03-11] MEDS ORDERED: POLYETHYLENE GLYCOL 3350 17 GM/Dose PACKET PO ONE ×2 (13:26→13:27)
== END 2018-03-11 14:46 | disposition home or self-care (01) ==
LOC: ED 10:39 → ERH 14:16 → 5RNO 16:03
PROVIDERS: ADMIT Internal Medicine; ATTEND Internal Medicine
DX: N39.0 Urinary tract infection, site not specified (principal); M79.7 Fibromyalgia; E03.9 Hypothyroidism, unspecified; F12.90 Cannabis use, unspecified, uncomplicated; F32.9 Major depressive disorder, single episode, unspecified; R10.13 Epigastric pain
CPT/HCPCS: 36415; 76700; 80053; 80324; 80329; 80345; 80346; 80349; 80353; 80358; 80361; 81001; 82550; 83690; 83735; 83992; 85025; 85027; 87040; 87086; 87181; 93005; 96361; 96365; 96366; 96367; 96375; 96376; 99285; G0378; J0696; J1885; J2270; J2405; J3475; J7030

== ENCOUNTER 2018-03-25 09:56 | Inpatient (IN) | payer MEDICAID ==
[2018-03-25 09:56] VITALS: BMI 29.9
[2018-03-25] MEDS ORDERED: Sodium Chloride 0.9% 1,000 ML IV STA ×2 (10:21→11:57)
[2018-03-25 10:58] LABS: BASO # 0.06 K/mm3 (0.0-2.0); BASO % 0.4 % (0.0-3.0); EOS % 0.2 % (1.5-5.0); GRAN # 12.95 (1.4-6.5); GRAN % 77.6 % (50.0-68.0); HEMOGLOBIN 11.3 g/dL (12.0-16.0); LYMPH # 2.7 (1.2-3.4); LYMPH % 16.1 % (22.0-35.0); MEAN CELL VOLUME 82.8 fl (80.0-105.0); MEAN CORPUSCULAR HEMOGLOBIN 27.4 pg (25.0-35.0); MEAN PLATELET VOLUME 11.6 fl (7.0-11.0); MONO % 5.7 % (1.0-6.0); PH,URINE 8.5 (4.7-8.0); RBC 4.13 10^6/uL (3.5-6.1); RED CELL DISTRIBUTION WIDTH 13.9 % (11.5-14.5); URINE BILIRUBIN NEGATIVE (NEGATIVE); URINE BLOOD NEGATIVE (NEGATIVE); URINE GLUCOSE (UA) NEGATIVE (NEGATIVE); URINE LEUKOCYTE ESTERASE MODERATE Leu/uL (NEGATIVE); URINE PROTEIN NEGATIVE mg/dL (<30 mg/dL); URINE UROBILINOGEN 0.2 E.U./dL (<1 E.U./dL); WHITE BLOOD COUNT 16.7 10^3/ul (4.5-11.0)
[2018-03-25 10:59] LABS: VENOUS BLOOD GAS BASE EXCESS 0.4 mmol/L (0.0-2.0); VENOUS BLOOD GAS PO2 31 mm/Hg (30-55)
[2018-03-25 11:00] LABS: URINE APPEARANCE CLEAR (CLEAR); URINE COLOR YELLOW (YELLOW)
[2018-03-25 11:12] LABS: ALB/GLOB RATIO 1.2 (1.1-1.8); ALBUMIN 4.2 g/dL (3.0-4.8); ALT/SGPT 30 U/L (7-56); AST/SGOT 24 U/L (14-36); BLOOD UREA NITROGEN 6 mg/dL (7-21); CALCIUM 9.3 mg/dL (8.4-10.5); GFR AFRICAN-AMERICAN > 60; GFR NON-AFRICAN AMERICAN > 60
[2018-03-25] MEDS ORDERED: Vancomycin 1gm in NS 250ml 1 GM/250 ML BAG IVPB STA (11:19)
[2018-03-25] MEDS ORDERED: cefTRIAXone 1 gm 1 GM/100 ML BAG IVPB STA (11:21)
[2018-03-25 11:26] LABS: INR 1.19 (0.93-1.08); PROTHROMBIN TIME 13.7 SECONDS (9.4-12.5)
[2018-03-25 11:27] LABS: PARTIAL THROMBOPLASTIN TIME 29.6 Seconds (25.1-36.5)
[2018-03-25 11:35] LABS: URINE BACTERIA MANY (NEG); URINE RBC 0 - 2 /hpf (0-2)
--- NOTE | 2018-03-25 12:01 | ED PDOC ---
Arrival/HPI - General Chief Complaint: Fever Time Seen by Provider: 03/25/18 10:13 Historian: Patient - History of Present Illness Narrative History of Present Illness (Text): 03/25/18 12:58 37yo female with pmhx of depression, fibromyalgia present with complaint of generalized body ache and subjective fever since yesterday. States the symptoms are typical of her fibromyalgia, but worse today. Notes that she took all her medications, but vomited s/p. She admits to left sided lower back pain that started yesterday with dysuria. Denies focal pain, focal weakness, abdominal pain, diarrhea, constipation, cough, chills, chest pain, any other complaint. Past Medical History - Provider Review Nursing Documentation Reviewed: Yes - Infectious Disease Hx of Infectious Diseases: None - Cardiac Hx Cardiac Disorders: No - Pulmonary Hx Respiratory Disorders: No - Neurological Hx Neurological Disorder: No - HEENT Hx HEENT Disorder: No - Renal Hx Renal Disorder: No - Endocrine/Metabolic Hx Endocrine Disorders: Yes Hx Hypothyroidism: Yes - Hematological/Oncological Hx Blood Disorders: No - Integumentary Hx Dermatological Disorder: No - Musculoskeletal/Rheumatological Hx Falls: No - Gastrointestinal Hx Gastrointestinal Disorders: No - Genitourinary/Gynecological Hx Genitourinary Disorders: No - Psychiatric Hx Psychophysiologic Disorder: Yes Hx Depression: Yes (post ) Hx Substance Use: Yes (Marijuana) - Surgical History Hx Hysterectomy: Yes Other/Comment: uterine fibroids, foot surgery - Anesthesia Hx Anesthesia: Yes Hx Anesthesia Reactions: No Hx Malignant Hyperthermia: No Family/Social History - Physician Review Nursing Documentation Reviewed: Yes Family/Social History: Unknown Family HX Smoking Status: Heavy Smoker > 10 Cigarettes Daily Hx Alcohol Use: No ("Sober for a year and a half") Hx Substance Use: Yes (Marijuana) Allergies/Home Meds Allergies/Adverse Reactions: Allergies No Known Allergies Allergy (Verified 03/10/18 10:54) Home Medications: Home Meds Medication Instructions Recorded Confirmed DULoxetine [Cymbalta] 120 mg PO DAILY 03/10/18 03/25/18 Gabapentin [Neurontin] 600 mg PO TID 03/10/18 03/25/18 Meloxicam [Mobic] 7.5 mg PO DAILY 03/10/18 03/25/18 Quetiapine Fumarate [Seroquel] 25 mg PO TID 03/10/18 03/25/18 Review of Systems - Physician Review All systems were reviewed & negative as marked: Yes - Review of Systems Constitutional: Fatigue, Fevers Eyes: Normal ENT: Normal Respiratory: Normal Cardiovascular: Normal Gastrointestinal: Normal Genitourinary Female: Dysuria. absent: Frequency, Hematuria Musculoskeletal: Back Pain Skin: Normal Neurological: Normal Endocrine: Normal Hemo/Lymphatic: Normal Psychiatric: Normal Physical Exam Vital Signs Reviewed: Yes Vital Signs Temp Pulse Resp BP Pulse Ox 03/25/18 14:10 99.3 F 86 18 118/61 03/25/18 13:01 99.3 F 03/25/18 12:50 98.3 F 86 18 118/61 98 03/25/18 12:01 101.3 F H 03/25/18 11:25 101.3 F H 90 18 120/64 98 03/25/18 10:05 100.4 F H 115 H 18 114/79 99 Temperature: Febrile Blood Pressure: Normal Pulse: Tachycardic Respiratory Rate: Normal Appearance: Positive for: Well-Appearing, Non-Toxic, Comfortable Pain Distress: None Mental Status: Positive for: Alert and Oriented X 3 - Systems Exam Head: Present: Atraumatic, Normocephalic Pupils: Present: PERRL Extroacular Muscles: Present: EOMI Conjunctiva: Present: Normal Mouth: Present: Moist Mucous Membranes Neck: Present: Normal Range of Motion Respiratory/Chest: Present: Clear to Auscultation, Good Air Exchange. No: Respiratory Distress, Accessory Muscle Use Cardiovascular: Present: Regular Rate and Rhythm, Normal S1, S2. No: Murmurs Abdomen: No: Tenderness, Distention, Peritoneal Signs, Rebound, Guarding, McBurney's Point Tender, Rovsing's Sign Present Back: Present: Normal Inspection. No: CVA Tenderness Upper Extremity: Present: Normal Inspection. No: Cyanosis, Edema Lower Extremity: Present: Normal Inspection. No: Edema Neurological: Present: GCS=15, CN II-XII Intact, Speech Normal Skin: Present: Warm, Dry, Normal Color. No: Rashes Psychiatric: Present: Alert, Oriented x 3, Normal Insight, Normal Concentration Medical Decision Making ED Course and Treatment: 03/25/18 19:51 PT in ED for stated history. she was tachy and febrile on presentation. Labs was ordered, reviewed and she had leukocytosis. Lactate was also elevated and code sepsis was called. She had leukocyte and small WBC in her urine with UTI symptoms. this could be the source of the infection. She was hydrated. Vancomycin and Rocephin was given. Phosphorous was repleted. EKG sinus tachy @101bpm CXR NAD Case was DW Dr. Fregoso and he accepted pt for admit. - Lab Interpretations Lab Results: 03/25/18 10:30 03/25/18 10:30 Lab Results 03/25/18 11:00: Procalcitonin 0.06 L 03/25/18 10:30: Lipase 75 03/25/18 10:30: Sodium 137, Chloride 99, Potassium 4.0, Carbon Dioxide 23, Anion Gap 19, BUN 6 L, Creatinine 0.7, Est GFR ( Amer) > 60, Est GFR (Non -Af Amer) > 60, Random Glucose 147 H, Calcium 9.3, Phosphorus 1.4 L*, Magnesium 1.5 L, Total Bilirubin 1.0, AST 24, ALT 30, Alkaline Phosphatase 106, Total Creatine Kinase 60, Total Protein 7.8, Albumin 4.2, Globulin 3.6, Albumin/ Globulin Ratio 1.2 03/25/18 10:30: pO2 31, VBG pH 7.50 H, VBG pCO2 29.0 L, VBG HCO3 22.6, VBG Total CO2 23.5, VBG O2 Sat (Calc) 71.7 H, VBG Base Excess 0.4, VBG Potassium 3.7 , Sodium 133.0, Chloride 100.0, Glucose 152 H, Lactate 2.8 H, FiO2 21.0, Venous Blood Potassium 3.7 03/25/18 10:30: Urine Color Yellow, Urine Appearance Clear, Urine pH 8.5, Ur Specific [place] 1.010, Urine Protein Negative, Urine Glucose (UA) Negative, Urine Ketones Negative, Urine Blood Negative, Urine Nitrate Negative, Urine Bilirubin Negative, Urine Urobilinogen 0.2, Ur Leukocyte Esterase Moderate H, Urine RBC 0 - 2, Urine WBC 10 - 15, Ur Epithelial Cells 6 - 8, Urine Bacteria Many, Urine Other Uyeast 03/25/18 10:30: PT 13.7 H, INR 1.19 H, APTT 29.6 03/25/18 10:30: WBC 16.7 H D, RBC 4.13, Hgb 11.3 L, Hct 34.2 L, MCV 82.8 D, MCH 27.4, MCHC 33.0, RDW 13.9, Plt Count 291, MPV 11.6 H, Gran % 77.6 H, Lymph % (Auto) 16.1 L, Crowley % (Auto) 5.7, Eos % (Auto) 0.2 L, Baso % (Auto) 0.4, Gran # 12.95 H, Lymph # (Auto) 2.7, Crowley # (Auto) 1.0 H, Eos # (Auto) 0.0, Baso # ( Auto) 0.06, ESR 60 H - RAD Interpretation Radiology Orders: 03/25/18 11:56 CHEST PORTABLE [RAD] Stat 03/25/18 12:44 ABDOMEN & PELVIS [ABD & PELVIS IV CONTRAST ONLY] [CT] Urgent - Medication Orders Current Medication Orders: Acetaminophen (Tylenol 325mg Tab) 650 mg PO Q6 PRN PRN Reason: Fever >100.4 F Duloxetine HCl (Cymbalta) 120 mg PO DAILY [place] Last Admin: 03/25/18 15:31 Dose: 120 mg Gabapentin (Neurontin) 600 mg PO TID [place] PRN Reason: Protocol Last Admin: 03/25/18 17:13 Dose: 600 mg Behavioural Document 03/25/18 17:13 MCV (Rec: 03/25/18 17:13 MCV [facility] [id number] Behavior Behavior for Medication: Anxiety Continuous pacing/restlessness Sodium Chloride (Sodium Chloride 0.9%) 1,000 mls @ 150 mls/hr IV .Q6H40M [place] Last Admin: 03/25/18 13:07 Dose: 150 mls/hr eMAR Start Stop Document 03/25/18 13:07 LA (Rec: 03/25/18 13:07 LA [facility] [id number] Intravenous Solution Start Date 03/25/18 Start Time 13:07 End Date 03/25/18 Meropenem (Merrem Iv 1 Gm Premix) 50 mls @ 100 mls/hr IVPB Q8 [place] PRN Reason: Protocol Last Admin: 03/25/18 17:14 Dose: 100 mls/hr eMAR Start Stop Document 03/25/18 17:14 MCV (Rec: 03/25/18 17:14 MCV [facility] [id number]) Intravenous Solution Start Date 03/25/18 Start Time 17:14 Meloxicam (Mobic) 7.5 mg PO DAILY [facility] Morphine Sulfate (Morphine) 1 mg IVP Q6H PRN PRN Reason: Pain, moderate (4-7) Morphine Sulfate (Morphine) 2 mg IVP Q6H PRN PRN Reason: Pain, severe (8-10) Last Admin: 03/25/18 17:17 Dose: 2 mg MAR Pain Assessment Document 03/25/18 17:17 MCV (Rec: 03/25/18 17:18 [id number]) Pain Reassessment Is this a pain reassessment? No Presence of Pain Presence of Pain Yes Pain Scale Used Pain Scale Used Numeric Location Pain Location Body Site Generalized Description Description Constant Acceptable Level of Pain 9 Pain Behavior Moaning Irritability Restlessness Facial Grimacing Aggravating Factors Changing Position Alleviating Factors/Management Medication Techniques IVP Administration Document 03/25/18 17:17 MCV (Rec: 03/25/18 17:18 [id number]) Charges for Administration # of IVP Administrations 1 Nicotine (Nicoderm Cq) 1 patch TD DAILY [facility] Last Admin: 03/25/18 15:31 Dose: 1 patch MAR Transdermal Patch Site Document 03/25/18 15:31 MCV (Rec: 03/25/18 15:31 [id number]) Transdermal Patch Site Transdermal Patch Site Right Shoulder Ondansetron HCl (Zofran Inj) 4 mg IVP Q4H PRN PRN Reason: Nausea/Vomiting Pantoprazole Sodium (Protonix Ec Tab) 40 mg PO DAILY [facility] Last Admin: 03/25/18 13:06 Dose: 40 mg Quetiapine Fumarate (Seroquel) 25 mg PO TID [place] PRN Reason: Protocol Last Admin: 03/25/18 17:13 Dose: 25 mg Behavioural Document 03/25/18 17:13 MCV (Rec: 03/25/18 17:13 [id number]) Behavior Behavior for Medication: Anxiety Continuous pacing/restlessness Discontinued Medications Acetaminophen (Tylenol 325mg Tab) 650 mg PO STAT STA Stop: 03/25/18 11:58 Last Admin: 03/25/18 12:01 Dose: 650 mg MAR Pain/Vitals Document 03/25/18 12:01 LA (Rec: 03/25/18 12:01 [place] [email or web address] Pain Reassessment Is This A Pain ReAssessment? No Sleep Is patient sleeping during reassessment? No Presence of Pain Presence of Pain Yes Pain Scale Used Pain Scale Used Numeric Location Pain Location Body Site Generalized Intensity 5 Scale Used Numeric Vitals Temperature (97.6 F-99.6 F) 101.3 F Temperature Source Rectal Re-Assess: MAR Pain/Vitals Document 03/25/18 13:01 LA (Rec: 03/25/18 14:03 LA [email or web address] Pain Reassessment Is This A Pain ReAssessment? Yes Sleep Is patient sleeping during reassessment? No Presence of Pain Presence of Pain No Vitals Temperature (97.6 F-99.6 F) 99.3 F Temperature Source Rectal Sodium Chloride (Sodium Chloride 0.9%) 1,000 mls @ 999 mls/hr IV .Q1H1M STA Stop: 03/25/18 11:21 Last Admin: 03/25/18 10:34 Dose: 999 mls/hr eMAR Start Stop Document 03/25/18 10:34 LA (Rec: 03/25/18 10:35 [facility] Intravenous Solution Start Date 03/25/18 Start Time 10:34 End Date 03/25/18 End time 11:35 Total Infusion Time 61 Ceftriaxone Sodium (Rocephin 1 Gram Ivpb) 1 gm in 100 mls @ 200 mls/hr IVPB STAT STA PRN Reason: Protocol Stop: 03/25/18 11:50 Last Admin: 03/25/18 11:30 Dose: 200 mls/hr eMAR Start Stop Document 03/25/18 11:30 LA (Rec: 03/25/18 11:30 [email or web address] Intravenous Solution Start Date 03/25/18 Start Time 11:30 End Date 03/25/18 End time 12:00 Total Infusion Time 30 Vancomycin HCl (Vancomycin 1gm) 1 gm in 250 mls @ 167 mls/hr IVPB STAT STA PRN Reason: Protocol Stop: 03/25/18 12:48 Last Admin: 03/25/18 12:23 Dose: 167 mls/hr eMAR Start Stop Document 03/25/18 12:23 LA (Rec: 03/25/18 12:23 LA [email or web address] Intravenous Solution Start Date 03/25/18 Start Time 12:23 End Date 03/25/18 End time 13:53 Total Infusion Time 90 Sodium Chloride (Sodium Chloride 0.9%) 1,000 mls @ 999 mls/hr IV .Q1H1M STA Stop: 03/25/18 12:57 Last Admin: 03/25/18 12:14 Dose: 999 mls/hr eMAR Start Stop Document 03/25/18 12:14 LA (Rec: 03/25/18 12:14 LA [email or web address] Intravenous Solution Start Date 03/25/18 Start Time 12:14 End Date 03/25/18 End time 13:15 Total Infusion Time 61 Magnesium Sulfate (Magnesium Sulfate 2 Gm/50 Ml Water) 2 gm in 50 mls @ 50 mls/ hr IVPB ONCE ONE Stop: 03/25/18 13:12 Last Admin: 03/25/18 13:06 Dose: 50 mls/hr eMAR Start Stop Document 03/25/18 13:06 LA (Rec: 03/25/18 13:06 [place] [email or web address] Intravenous Solution Start Date 03/25/18 Start Time 13:06 End Date 03/25/18 End time 14:06 Total Infusion Time 60 Potassium Phosphate 15 mmole/ (Sodium Chloride) 255 mls @ 42.5 mls/hr IVPB ONCE ONE Stop: 03/25/18 18:46 Last Admin: 03/25/18 15:28 Dose: 42.5 mls/hr eMAR Start Stop Document 03/25/18 15:28 MCV (Rec: 03/25/18 15:28 MCV [facility] [id number]) Intravenous Solution Start Date 03/25/18 Start Time 15:28 Ketorolac Tromethamine (Toradol) 30 mg IVP STAT STA Stop: 03/25/18 10:22 Last Admin: 03/25/18 10:35 Dose: 30 mg MAR Pain Assessment Document 03/25/18 10:35 LA (Rec: 03/25/18 10:35 LA [email or web address] Pain Reassessment Is this a pain reassessment? No Sleep Is patient sleeping during reassessment? No Presence of Pain Presence of Pain Yes Pain Scale Used Pain Scale Used Numeric Location Pain Location Body Site Generalized Description Description Constant Intensity of Pain at present 8 Pain Behavior Crying Guarding IVP Administration Document 03/25/18 10:35 LA (Rec: 03/25/18 10:35 LA [place] [id number]) Charges for Administration # of IVP Administrations 1 Re-Assess: THIAGO Pain Assessment Document 03/25/18 11:35 LA (Rec: 03/25/18 11:43 LA [place] [id number]) Pain Reassessment Is this a pain reassessment? Yes Sleep Is patient sleeping during reassessment? No Presence of Pain Presence of Pain Yes Pain Scale Used Pain Scale Used Numeric Location Pain Location Body Eclectic Doctor Generalized Description Description Constant Intensity of Pain at present 5 Pain Behavior Guarding Morphine Sulfate (Morphine) 2 mg IVP Q6H PRN PRN Reason: Pain, moderate (4-7) Ondansetron HCl (Zofran Inj) 4 mg IVP STAT STA Stop: 03/25/18 10:22 Last Admin: 03/25/18 10:35 Dose: 4 mg IVP Administration Document 03/25/18 10:35 LA (Rec: 03/25/18 10:35 LA [place] [id number]) Charges for Administration # of IVP Administrations 1 Pneumococcal Polyvalent Vaccine (Pneumovax 23 Vaccine) 0.5 ml IM .ONCE ONE Stop: 03/25/18 14:42 Disposition/Present on Arrival - Present on Arrival Any Indicators Present on Arrival: No History of DVT/PE: No History of Uncontrolled Diabetes: No Urinary Catheter: No History of Decub. Ulcer: No History Surgical Site Infection Following: None - Disposition Have Diagnosis and Disposition been Completed?: Yes Diagnosis: Sepsis, UTI (urinary tract infection), Leukocytosis Disposition: HOSPITALIZED Disposition Time: 12:00 Patient Plan: Admission Patient Problems: Current Active Problems Problem Status Onset Sepsis Acute Condition: FAIR
[2018-03-25] MEDS ORDERED: Magnesium Sulfate 2 gm/50 ml 2 GM/50 ML BAG IVPB ONE (12:13)
--- NOTE | 2018-03-25 12:20 | CP.PCM.HP ---
<Ashely Trinidad - Last Filed: 03/25/18 14:31> History of Present Illness - History of Present Illness History of Present Illness: History and Physical - Hospitalist Service CC: I've been having fevers and body aches HPI: Patient is a 37 year old female with past medical history of fibromyalgia, depression, recent hysterectomy complicated by bladder injury resulting in chronic quiroz that was removed and Left ureteral stent placement presents to [facility] for fevers and body aches that started last night. Patient states that she took ibuprofen and measured her temp which was 101.3. Patient also reports having Left lower quadrant pain that started last night as well. This morning patient reports having one episode of nausea and bilious vomiting, with loose bowel movements x 3 days. Patient was recently admitted for complicated UTI earlier this month that failed outpatient therapy. Patient was discharged on PO Levaquin and completed the course of antibiotics. Patient was given referral to follow up with outpatient urology but has not followed up yet. She also admits to shortness of breath at this time. Able to speak in completed sentences. Denies headaches, dizziness, cp, palpitations, dysuria. ED Course: Tylenol 650mg x 1, Zofran 4mg x 1, NS bolus x 2 BOW MA[employer]: Dr [place] Allergies: NKDA Medications: Seroquel 25mg PO TID prn, Cymbalta 120mg PO daily, Gabapentin 600mg PO TID Medical History: Fibromylagia, Depression Surgical History: Hysterectomy, uterine cyst removal, bunion removal Social History: Smoked 1ppd, denies alcohol, drug use; lives with ; UTOX on previous admission +Cannabinoids Family History: Denies Present on Admission - Present on Admission Any Indicators Present on Admission: No Past Patient History - Infectious Disease Hx of Infectious Diseases: None - Past Social History Smoking Status: Heavy Smoker > 10 Cigarettes Daily - CARDIAC Hx Cardiac Disorders: No - PULMONARY Hx Respiratory Disorders: No - NEUROLOGICAL Hx Neurological Disorder: No - HEENT Hx HEENT Problems: No - RENAL Hx Chronic Kidney Disease: No - ENDOCRINE/METABOLIC Hx Endocrine Disorders: Yes Hx Hypothyroidism: Yes - HEMATOLOGICAL/ONCOLOGICAL Hx Blood Disorders: No - INTEGUMENTARY Hx Dermatological Problems: No - MUSCULOSKELETAL/RHEUMATOLOGICAL Hx Falls: No - GASTROINTESTINAL Hx Gastrointestinal Disorders: No - GENITOURINARY/GYNECOLOGICAL Hx Genitourinary Disorders: No - PSYCHIATRIC Hx Psychophysiologic Disorder: Yes Hx Depression: Yes (post ) Hx Substance Use: Yes (Marijuana) - SURGICAL HISTORY Hx Hysterectomy: Yes Other/Comment: uterine fibroids, foot surgery - ANESTHESIA Hx Anesthesia: Yes Hx Anesthesia Reactions: No Hx Malignant Hyperthermia: No Meds Allergies/Adverse Reactions: Allergies Allergy/AdvReac Type Severity Reaction Status Date / Time No Known Allergies Allergy Verified 03/10/18 10:54 Physical Exam - Constitutional Appears: No Acute Distress - Head Exam Head Exam: ATRAUMATIC, NORMAL INSPECTION, NORMOCEPHALIC - Eye Exam Eye Exam: EOMI, Normal appearance - ENT Exam ENT Exam: Mucous Membranes Moist - Respiratory Exam Respiratory Exam: Clear to Auscultation Bilateral, NORMAL BREATHING PATTERN. absent: Rales, Rhonchi, Wheezes - Cardiovascular Exam Cardiovascular Exam: REGULAR RHYTHM, +S1, +S2 - GI/Abdominal Exam GI & Abdominal Exam: Normal Bowel Sounds, Soft, Tenderness (LLQ). absent: Distended, Guarding, Rebound, Rigid - Extremities Exam Extremities exam: Positive for: normal inspection, pedal pulses present - Back Exam Back exam: NORMAL INSPECTION. absent: CVA tenderness (L), CVA tenderness (R) - Neurological Exam Neurological exam: Alert, Oriented x3 - Psychiatric Exam Psychiatric exam: Normal Affect, Normal Mood - Skin Skin Exam: Dry, Normal Color, Warm Results - Vital Signs Recent Vital Signs: Last Vital Signs Temp 101.3 F H 03/25/18 12:01 Pulse 90 03/25/18 11:25 Resp 18 03/25/18 11:25 BP 120/64 03/25/18 11:25 Pulse Ox 98 03/25/18 11:25 - Labs Result Diagrams: 03/25/18 10:30 03/25/18 10:30 Labs: Laboratory Results - last 24 hr 03/25/18 03/25/18 03/25/18 10:30 10:30 10:30 WBC 16.7 H D RBC 4.13 Hgb 11.3 L Hct 34.2 L MCV 82.8 D MCH 27.4 MCHC 33.0 RDW 13.9 Plt Count 291 MPV 11.6 H Gran % 77.6 H Lymph % (Auto) 16.1 L [place] % (Auto) 5.7 Eos % (Auto) 0.2 L Baso % (Auto) 0.4 Gran # 12.95 H Lymph # (Auto) 2.7 [place] # (Auto) 1.0 H Eos # (Auto) 0.0 Baso # (Auto) 0.06 ESR 60 H PT 13.7 H INR 1.19 H APTT 29.6 pO2 VBG pH VBG pCO2 VBG HCO3 VBG Total CO2 VBG O2 Sat (Calc) VBG Base Excess VBG Potassium Sodium Chloride Glucose Lactate FiO2 Potassium Carbon Dioxide Anion Gap BUN Creatinine Est GFR ( Amer) Est GFR (Non-Af Amer) Random Glucose Calcium Phosphorus Magnesium Total Bilirubin AST ALT Alkaline Phosphatase Total Creatine Kinase Total Protein Albumin Globulin Albumin/Globulin Ratio Venous Blood Potassium Urine Color Yellow Urine Appearance Clear Urine pH 8.5 Ur Specific Amberson 1.010 Urine Protein Negative Urine Glucose (UA) Negative Urine Ketones Negative Urine Blood Negative Urine Nitrate Negative Urine Bilirubin Negative Urine Urobilinogen 0.2 Ur Leukocyte Esterase Moderate H Urine RBC 0 - 2 Urine WBC 10 - 15 Ur Epithelial Cells 6 - 8 Urine Bacteria Many Urine Other Uyeast 03/25/18 03/25/18 10:30 10:30 WBC RBC Hgb Hct MCV MCH MCHC RDW Plt Count MPV Gran % Lymph % (Auto) [place] % (Auto) Eos % (Auto) Baso % (Auto) Gran # Lymph # (Auto) [place] # (Auto) Eos # (Auto) Baso # (Auto) ESR PT INR APTT pO2 31 VBG pH 7.50 H VBG pCO2 29.0 L VBG HCO3 22.6 VBG Total CO2 23.5 VBG O2 Sat (Calc) 71.7 H VBG Base Excess 0.4 VBG Potassium 3.7 Sodium 133.0 137 Chloride 100.0 99 Glucose 152 H Lactate 2.8 H FiO2 21.0 Potassium 4.0 Carbon Dioxide 23 Anion Gap 19 BUN 6 L Creatinine 0.7 Est GFR ( Amer) > 60 Est GFR (Non-Af Amer) > 60 Random Glucose 147 H Calcium 9.3 Phosphorus 1.4 L* Magnesium 1.5 L Total Bilirubin 1.0 AST 24 ALT 30 Alkaline Phosphatase 106 Total Creatine Kinase 60 Total Protein 7.8 Albumin 4.2 Globulin 3.6 Albumin/Globulin Ratio 1.2 Venous Blood Potassium 3.7 Urine Color Urine Appearance Urine pH Ur Specific Amberson Urine Protein Urine Glucose (UA) Urine Ketones Urine Blood Urine Nitrate Urine Bilirubin Urine Urobilinogen Ur Leukocyte Esterase Urine RBC Urine WBC Ur Epithelial Cells Urine Bacteria Urine Other Assessment & Plan - Assessment and Plan (Free Text) Assessment: A/P: Patient is a 37 year old female with past medical history of fibromyalgia, depression, complicated UTI presents to [facility] for fevers and body aches with associated N/V and diarrhea. Patient was recently admitted and treated for UTI that failed outpatient therapy. Code Sepsis called in the ED. Patient recieved Vancomycin and Rocephin. Sepsis likely 2/2 to UTI (r/o other intra-abdominal sources) -Stable, Tmax 101.3, currently afebrile -Patient with leukocytosis and elevated lactate -CT abd/pelvis with IV contrast ordered -CXR ordered, f/u report -UA on admission showed moderate leukocyte esterase, +yeast -Prior Urine cultures from grew Enterobacter, sensitivities reviewed -F/U urine cultures, blood cultures, procalcitonin, trend lactate -Tylenol 650mg PO Q6H prn fever -NS at 150cc/hour -ID on consult, help appreciated Abnormal UA/History of complicated UTI -Patient currently with ureteral stent February 2018 -Patient sees Dr Chatman outpatient, plan was to have stent removed in 2 months -F/U urine culture -Urology on consult, help appreciated -ID on consult, help appreciated Left Lower Quadrant pain -CT abd/pelvis ordered -F/U lipase -Pain control: Morphine 2mg Q6H prn, Morphine 1mg Q6H prn -Zofran 4mg Q4H prn nausea -Will advance to liquid diet after CT abd/pelvis Shortness of breath -Likely secondary to anxiety vs pain -O2 sats within normal range -CXR ordered, no infiltrates visualized, f/u official report -Continue to monitor Diarrhea -C diff toxin/antigen ordered -Will consider starting pro-biotic after C diff results Hypomagnesemia/Hypophosphatemia -Kphos 15mmol x 1 dose -Mag sulfate 2mg IVPB x 1 dose -Continue to monitor Tobacco abuse/Marijuana abuse -Patient states that she wants to quit -Counselled on cessation -Nicotine patch -F/U UTOX History of Fibromyalgia/Depression -Continue Cymbalta, Gabapentin, Seroquel GI/DVT ppx: Protonix 40mg PO daily SCDs Plan discussed with Dr Vesta Trinidad DO PGY-1 <Bao Lemons - Last Filed: 03/25/18 14:40> Results - Vital Signs Recent Vital Signs: Last Vital Signs Temp 99.3 F 03/25/18 13:01 Pulse 86 03/25/18 12:50 Resp 18 03/25/18 12:50 BP 118/61 03/25/18 12:50 Pulse Ox 98 03/25/18 12:50 - Labs Result Diagrams: 03/25/18 10:30 03/25/18 10:30 Labs: Laboratory Results - last 24 hr 03/25/18 03/25/18 13:45 14:10 pO2 173 H VBG pH 7.37 VBG pCO2 38.0 L VBG HCO3 22.0 VBG Total CO2 23.2 VBG O2 Sat (Calc) 100.1 H VBG Base Excess -2.9 L VBG Potassium 3.6 Sodium 136.0 Chloride 109.0 H Glucose 99 Lactate 1.5 FiO2 21.0 Venous Blood Potassium 3.6 Urine Methadone Screen Negative Attending/Attestation - Attestation I have personally seen and examined this patient.: Yes I have fully participated in the care of the patient.: Yes I have reviewed all pertinent clinical information: Yes Notes (Text): 03/25/18 14:35 37 year old female with past medical history of fibromyalgia, depression, complicated hysterectomy with ureteral stent and recurrent UTI who presents with fever, lower abdominal pain, nausea, vomiting and diarrhea. She was recently treated for UTI. She is febrile with leukocytosis in ER. UA shows moderate LE. She received vancomycin and rocephin in ER. Will follow up on blood and urine cultures. Will follow up on CXR. ID and urology evaluations are requested. CT abd/pelvis is ordered. Stool studies ordered for diarrhea. Continue with home medications for fibromyalgia and depression. Will replete and repeat lytes. Bao Lemons MD Hospitalist.
[2018-03-25] MEDS ORDERED: Potassium Phosphate 15 MMOLE in Sodium Chloride 0.9% 250 ML IVPB ONE (12:47)
[2018-03-25] MEDS ORDERED: Iohexol 350 MG/100 ML VIAL ONE (12:50)
[2018-03-25] MEDS ORDERED: Morphine 5 MG/ML SYRINGE IVP PRN (12:52)
[2018-03-25] MEDS: Pantoprazole 40 mg EC Tab PO SCH (13:06)
[2018-03-25] MEDS: Sodium Chloride 0.9% 1,000 ML IV SCH (13:07)
[2018-03-25 13:57] LABS: VENOUS BLOOD GAS BASE EXCESS -2.9 mmol/L (0.0-2.0); VENOUS BLOOD GAS PO2 173 mm/Hg (30-55); VENOUS BLOOD PH 7.37 (7.32-7.43)
[2018-03-25 14:38] LABS: BARBITURATES, UR NEGATIVE (NEGATIVE); BENZODIAZEPINES, UR NEGATIVE (NEGATIVE); OPIATES, UR NEGATIVE (NEGATIVE); PHENCYCLIDINE, UR NEGATIVE (NEGATIVE)
[2018-03-25] MEDS ORDERED: Pneumococcal 23-Valent Vaccine IM ONE (14:41)
--- NOTE | 2018-03-25 15:06 | RAD ---
HISTORY: Admission COMPARISON: 11/17/2016 FINDINGS: LUNGS: No active pulmonary disease. PLEURA: No significant pleural effusion identified, no pneumothorax apparent. CARDIOVASCULAR: Normal. OSSEOUS STRUCTURES: No significant abnormalities. VISUALIZED UPPER ABDOMEN: Normal. OTHER FINDINGS: None. IMPRESSION: No active disease. No significant interval change compared to the prior examination(s).
--- NOTE | 2018-03-25 15:10 | CT ---
PROCEDURE: CT Abdomen and Pelvis with contrast HISTORY: LLQ pain, Hx of ureteral stent, r/o abscess COMPARISON: None. TECHNIQUE: Contrast dose: 100 cc of Omni 350 Radiation dose: Total exam DLP = 724 mGy-cm. This CT exam was performed using one or more of the following dose reduction techniques: Automated exposure control, adjustment of the mA and/or kV according to patient size, and/or use of iterative reconstruction technique. FINDINGS: LOWER THORAX: Unremarkable. LIVER: Unremarkable. No gross lesion or ductal dilatation. GALLBLADDER AND BILE DUCTS: Unremarkable. PANCREAS: Unremarkable. No gross lesion or ductal dilatation. SPLEEN: Unremarkable. ADRENALS: Unremarkable. No mass. KIDNEYS AND URETERS: There is a left-sided ureteral stent. There is no hydronephrosis VASCULATURE: Unremarkable. No aortic aneurysm. BOWEL: Unremarkable. No obstruction. No gross mural thickening. APPENDIX: Normal appendix. PERITONEUM: Unremarkable. No free fluid. No free air. LYMPH NODES: Unremarkable. No enlarged lymph nodes. BLADDER: Unremarkable. REPRODUCTIVE: Hysterectomy BONES: No acute fracture. OTHER FINDINGS: None. IMPRESSION: No acute intra-abdominal findings
--- NOTE | 2018-03-25 15:28 | PCM.SEPTIC ---
Sepsis Progress Note - Reassessment Type Date of Evaluation: 03/25/18 Time of Evaluation: 15:00 Reassessment Type: Non-invasive reassessment - Non Invasive Reassessment Were the most recent vital sign reviewed: Yes Vital Sign (Latest): Temp Pulse Resp BP Pulse Ox 98.3 F 88 20 105/66 100 03/25/18 15:06 03/25/18 15:06 03/25/18 15:06 03/25/18 15:06 03/25/18 15:06 Cardiovascular: Yes: Regular Rate, Rhythm Respiratory: Yes: Normal Breath Sounds Capillary Refill: Normal (Less than 2 sec) Pulses: Normal Radial, Normal Dorsalis Pedis, Normal Posterior Tibialis Skin: Normal Color, Warm, Dry
--- NOTE | 2018-03-25 16:19 | PCM.URO ---
Urology Progress Note - Objective Lab Studies: Reviewed (will discuss plans thanks) Lab Results Last 24 Hours: Laboratory Results - last 24 hr 03/25/18 03/25/18 13:45 14:10 pO2 173 H VBG pH 7.37 VBG pCO2 38.0 L VBG HCO3 22.0 VBG Total CO2 23.2 VBG O2 Sat (Calc) 100.1 H VBG Base Excess -2.9 L VBG Potassium 3.6 Sodium 136.0 Chloride 109.0 H Glucose 99 Lactate 1.5 FiO2 21.0 Venous Blood Potassium 3.6 Urine Opiates Screen Negative Urine Methadone Screen Negative Ur Barbiturates Screen Negative Ur Phencyclidine Scrn Negative Ur Amphetamines Screen Negative U Benzodiazepines Scrn Negative U Oth Cocaine Metabols Negative U Cannabinoids Screen Negative Intake & Output: Intake & Output 03/24/18 03/25/18 03/25/18 18:59 06:59 18:59 Weight 180 lb Other: Voiding Method Toilet Vital Signs: Vital Signs - 24 hr 03/25/18 03/25/18 03/25/18 13:01 14:10 14:25 Temperature 99.3 F 99.3 F 99.3 F Pulse Rate 86 86 Respiratory 18 18 Rate Blood Pressure 118/61 121/65 O2 Sat by Pulse 98 Oximetry 03/25/18 15:06 Temperature 98.3 F Pulse Rate 88 Respiratory 20 Rate Blood Pressure 105/66 O2 Sat by Pulse 100 Oximetry
--- NOTE | 2018-03-25 17:10 | CARD ---
APPROVED REPORT EKG Measurement Heart [id number] <Conclusion> Sinus tachycardia Otherwise normal ECG
--- NOTE | 2018-03-25 17:10 | CP.PCM.CON ---
History of Present Illness - History of Present Illness History of Present Illness: 37 year old female with PMH of fibromyalgia, history of depression recently had a vaginal hysterectomy done in February 2018 and the urinary bladder was injured and a left ureteral stent was placed. Since then she has been having left lower quadrant pain occasionally. About 3-4 days ago, the pain became worse, with associated nausea, vomiting, fevers and body aches and left flank pain. The patient was recently treated in early March 2018 for UTI and the patient completed course of Levaquin. The patient denies chest pain, no SOB, no cough or colds, no headache or dizziness, no dysphagia, no blurring of vision. In the ED, urinalysis showed pyuria. Infectious diseases consult is requested to further evaluate and manage. Review of Systems - Review of Systems All systems: reviewed and no additional remarkable complaints except (as per HPI ) Past Patient History - Infectious Disease Hx of Infectious Diseases: None - Past Social History Smoking Status: Heavy Smoker > 10 Cigarettes Daily - CARDIAC Hx Cardiac Disorders: No - PULMONARY Hx Respiratory Disorders: No - NEUROLOGICAL Hx Neurological Disorder: No - HEENT Hx HEENT Problems: No - RENAL Hx Chronic Kidney Disease: No - ENDOCRINE/METABOLIC Hx Endocrine Disorders: Yes Hx Hypothyroidism: Yes - HEMATOLOGICAL/ONCOLOGICAL Hx Blood Disorders: No - INTEGUMENTARY Hx Dermatological Problems: No - MUSCULOSKELETAL/RHEUMATOLOGICAL Hx Falls: No - GASTROINTESTINAL Hx Gastrointestinal Disorders: No - GENITOURINARY/GYNECOLOGICAL Hx Genitourinary Disorders: No - PSYCHIATRIC Hx Psychophysiologic Disorder: Yes Hx Depression: Yes (post ) Hx Substance Use: Yes (Marijuana) - SURGICAL HISTORY Hx Hysterectomy: Yes Other/Comment: uterine fibroids, foot surgery - ANESTHESIA Hx Anesthesia: Yes Hx Anesthesia Reactions: No Hx Malignant Hyperthermia: No Meds Allergies/Adverse Reactions: Allergies Allergy/AdvReac Type Severity Reaction Status Date / Time No Known Allergies Allergy Verified 03/10/18 10:54 - Medications Medications: Current Medications Acetaminophen (Tylenol 325mg Tab) 650 mg PO Q6 PRN PRN Reason: Fever >100.4 F Duloxetine HCl (Cymbalta) 120 mg PO DAILY [facility] Last Admin: 03/25/18 15:31 Dose: 120 mg Gabapentin (Neurontin) 600 mg PO TID RENETTA PRN Reason: Protocol Potassium Phosphate 15 mmole/ (Sodium Chloride) 255 mls @ 42.5 mls/hr IVPB ONCE ONE Stop: 03/25/18 18:46 Last Admin: 03/25/18 15:28 Dose: 42.5 mls/hr Sodium Chloride (Sodium Chloride 0.9%) 1,000 mls @ 150 mls/hr IV .Q6H40M [facility] Last Admin: 03/25/18 13:07 Dose: 150 mls/hr Ceftriaxone Sodium (Rocephin 1 Gram Ivpb) 1 gm in 100 mls @ 100 mls/hr IVPB DAILY [facility] PRN Reason: Protocol Meloxicam (Mobic) 7.5 mg PO DAILY [facility] Morphine Sulfate (Morphine) 1 mg IVP Q6H PRN PRN Reason: Pain, moderate (4-7) Morphine Sulfate (Morphine) 2 mg IVP Q6H PRN PRN Reason: Pain, severe (8-10) Nicotine (Nicoderm Cq) 1 patch TD DAILY [facility] Last Admin: 03/25/18 15:31 Dose: 1 patch Ondansetron HCl (Zofran Inj) 4 mg IVP Q4H PRN PRN Reason: Nausea/Vomiting Pantoprazole Sodium (Protonix Ec Tab) 40 mg PO DAILY [facility] Last Admin: 03/25/18 13:06 Dose: 40 mg Quetiapine Fumarate (Seroquel) 25 mg PO TID [facility] PRN Reason: Protocol Last Admin: 03/25/18 15:31 Dose: 25 mg Physical Exam - Constitutional Appears: Non-toxic, Chronically Ill - Head Exam Head Exam: NORMAL INSPECTION - ENT Exam ENT Exam: Mucous Membranes Moist - Neck Exam Neck exam: Negative for: Lymphadenopathy, Meningismus - Respiratory Exam Respiratory Exam: Decreased Breath Sounds - Cardiovascular Exam Cardiovascular Exam: +S1, +S2 - GI/Abdominal Exam GI & Abdominal Exam: Soft, Tenderness (left lower quadrant). absent: Distended , Firm, Guarding, Rigid - Back Exam Back exam: absent: CVA tenderness (L), CVA tenderness (R) Results - Vital Signs Recent Vital Signs: Last Vital Signs Temp 98.3 F 03/25/18 15:06 Pulse 88 03/25/18 15:06 Resp 20 03/25/18 15:06 BP 105/66 03/25/18 15:06 Pulse Ox 100 03/25/18 15:06 - Labs Result Diagrams: 03/25/18 10:30 06/18/18 10:30 Labs: Laboratory Results - last 24 hr 03/25/18 03/25/18 13:45 14:10 pO2 173 H VBG pH 7.37 VBG pCO2 38.0 L VBG HCO3 22.0 VBG Total CO2 23.2 VBG O2 Sat (Calc) 100.1 H VBG Base Excess -2.9 L VBG Potassium 3.6 Sodium 136.0 Chloride 109.0 H Glucose 99 Lactate 1.5 FiO2 21.0 Venous Blood Potassium 3.6 Urine Opiates Screen Negative Urine Methadone Screen Negative Ur Barbiturates Screen Negative Ur Phencyclidine Scrn Negative Ur Amphetamines Screen Negative U Benzodiazepines Scrn Negative U Oth Cocaine Metabols Negative U Cannabinoids Screen Negative Assessment & Plan - Assessment and Plan (Free Text) Plan: Assessment consider sepsis due to left sided upper UTI / pyelonephritis in this patient with left ureteral stent placed after bladder injury after vaginal hysterectomy in February 2018 fibromyalgia history of depression Plan Started Merrem pending blood and urine cx; CT A/P is negative for acute findings follow up Urology evaluation willl check HIV test will monitor clinically
[2018-03-25] MEDS: Meropenem IV 1 gm in NS 50 ML IVPB SCH ×2 (17:14→23:06)
[2018-03-25] MEDS: Morphine 2 mg/ml ISec IVP PRN (17:17)
[2018-03-26] MEDS: Meropenem IV 1 gm in NS 50 ML IVPB SCH ×3 (05:18→21:33)
[2018-03-26] MEDS: Morphine 2 mg/ml ISec IVP PRN ×3 (05:26→20:02)
[2018-03-26 07:29] LABS: BASO # 0.04 K/mm3 (0.0-2.0); BASO % 0.3 % (0.0-3.0); EOS # 0.1 (0.0-0.7); EOS % 0.6 % (1.5-5.0); GRAN # 8.98 (1.4-6.5); GRAN % 70.9 % (50.0-68.0); HEMOGLOBIN 9.6 g/dL (12.0-16.0); LYMPH # 2.4 (1.2-3.4); MEAN CELL VOLUME 84.3 fl (80.0-105.0); MEAN PLATELET VOLUME 11.8 fl (7.0-11.0); MONO # 1.2 (0.1-0.6); MONO % 9.2 % (1.0-6.0); RBC 3.56 10^6/uL (3.5-6.1); RED CELL DISTRIBUTION WIDTH 14.3 % (11.5-14.5); WHITE BLOOD COUNT 12.7 10^3/ul (4.5-11.0)
[2018-03-26 07:48] LABS: ALB/GLOB RATIO 1.1 (1.1-1.8); ALBUMIN 3.1 g/dL (3.0-4.8); ALT/SGPT 26 U/L (7-56); AST/SGOT 14 U/L (14-36); BLOOD UREA NITROGEN 3 mg/dL (7-21); CALCIUM 7.6 mg/dL (8.4-10.5); GFR AFRICAN-AMERICAN > 60; GFR NON-AFRICAN AMERICAN > 60
[2018-03-26] MEDS: Meloxicam 7.5 MG TAB PO SCH (09:21)
[2018-03-26] MEDS: Pantoprazole 40 mg EC Tab PO SCH (09:25)
[2018-03-26] MEDS ORDERED: cefTRIAXone 1 gm 1 GM/100 ML BAG IVPB SCH (10:00)
--- NOTE | 2018-03-26 10:08 | CP.PCM.PN ---
<Ashely Trinidad - Last Filed: 03/26/18 12:53> Subjective - Date & Time of Evaluation Date of Evaluation: 03/26/18 Time of Evaluation: 10:08 - Subjective Subjective: Internal Medicine Progress Note - Hospitalist Service Patient seen and examined at bedside. Per nursing no acute events overnight. Patient states that she has been having a headache. She spiked a temperature of 102 yesterday. Abdominal pain improving. Ambulating and tolerating diet. Denies dizziness, chills, cp, palpitations, chest pain, palpitations, dysuria. Has not had a bowel movement yet. Objective - Vital Signs/Intake and Output Vital Signs (last 24 hours): Temp Pulse Resp BP Pulse Ox 100 F H 100 H 18 101/56 L 97 03/26/18 06:00 03/26/18 06:00 03/26/18 06:00 03/26/18 06:00 03/26/18 06:00 Intake and Output: 03/26/18 03/26/18 06:59 18:59 Intake Total 2770 Balance 2770 - Medications Medications: Current Medications Acetaminophen (Tylenol 325mg Tab) 650 mg PO Q6 PRN PRN Reason: Fever >100.4 F Last Admin: 03/25/18 20:53 Dose: 650 mg Duloxetine HCl (Cymbalta) 120 mg PO DAILY [facility] Last Admin: 03/26/18 09:21 Dose: 120 mg Gabapentin (Neurontin) 600 mg PO TID RENETTA PRN Reason: Protocol Last Admin: 03/26/18 09:25 Dose: 600 mg Sodium Chloride (Sodium Chloride 0.9%) 1,000 mls @ 150 mls/hr IV .Q6H40M [facility] Last Admin: 03/25/18 13:07 Dose: 150 mls/hr Meropenem (Merrem Iv 1 Gm Premix) 50 mls @ 100 mls/hr IVPB Q8 RENETTA PRN Reason: Protocol Last Admin: 03/26/18 05:18 Dose: 100 mls/hr Meloxicam (Mobic) 7.5 mg PO DAILY [facility] Last Admin: 03/26/18 09:21 Dose: 7.5 mg Morphine Sulfate (Morphine) 1 mg IVP Q6H PRN PRN Reason: Pain, moderate (4-7) Nicotine (Nicoderm Cq) 1 patch TD DAILY [facility] Last Admin: 03/26/18 09:25 Dose: 1 patch Ondansetron HCl (Zofran Inj) 4 mg IVP Q4H PRN PRN Reason: Nausea/Vomiting Pantoprazole Sodium (Protonix Ec Tab) 40 mg PO DAILY [facility] Last Admin: 03/26/18 09:25 Dose: 40 mg Quetiapine Fumarate (Seroquel) 25 mg PO TID RENETTA PRN Reason: Protocol Last Admin: 03/26/18 09:21 Dose: 25 mg - Labs Labs: 03/26/18 07:00 03/26/18 07:00 PT 13.7 SECONDS (9.4-12.5) H 03/25/18 10:30 INR 1.19 (0.93-1.08) H 03/25/18 10:30 APTT 29.6 Seconds (25.1-36.5) 03/25/18 10:30 - Constitutional Appears: Non-toxic, No Acute Distress - Head Exam Head Exam: ATRAUMATIC, NORMAL INSPECTION, NORMOCEPHALIC - Eye Exam Eye Exam: EOMI, Normal appearance - ENT Exam ENT Exam: Mucous Membranes Moist - Neck Exam Neck Exam: Full ROM - Respiratory Exam Respiratory Exam: Clear to Ausculation Bilateral, NORMAL BREATHING PATTERN. absent: Rales, Rhonchi, Wheezes - Cardiovascular Exam Cardiovascular Exam: REGULAR RHYTHM, +S1, +S2 - GI/Abdominal Exam GI & Abdominal Exam: Soft, Tenderness (LLQ), Normal Bowel Sounds. absent: Guarding, Rigid - Extremities Exam Extremities Exam: Full ROM, Normal Inspection - Back Exam Back Exam: NORMAL INSPECTION - Neurological Exam Neurological Exam: Alert, Awake, CN II-XII Intact, Oriented x3 - Psychiatric Exam Psychiatric exam: Normal Affect, Normal Mood - Skin Skin Exam: Dry, Normal Color, Warm Assessment and Plan - Assessment and Plan (Free Text) Assessment: A/P: Patient is a 37 year old female with past medical history of fibromyalgia, depression, complicated UTI presents to [facility] [place] for fevers and body aches with associated N/V and diarrhea. Patient was recently admitted and treated for UTI that failed outpatient therapy. Code Sepsis called in the ED. Patient recieved Vancomycin and Rocephin. SIRS (source unknown) -Stable, Tmax 102, currently afebrile -Patient with leukocytosis and elevated lactate on admission -Leukocytosis 16.7 -> 12.7; Lactate now normal -CT abd/pelvis with IV contrast showed no acute intra-abdominal pathology -CXR showed no active disease -UA on admission showed moderate leukocyte esterase, +yeast -Prior Urine cultures from grew Enterobacter, sensitivities reviewed -Repeat urine cultures showing no growth, blood cultures showing no growth x 24 hours, procalcitonin is low -Antibiotics: Merrem 1gm Q8H -Tylenol 650mg PO Q6H prn fever -F/U HIV -ID on consult, help appreciated Abnormal UA/History of complicated UTI -Patient currently with ureteral stent February 2018 -Patient sees Dr Chatman outpatient, plan was to have stent removed in 2 months -Repeat urine culture showing no growth -Urology on consult, help appreciated -ID on consult, help appreciated Left Lower Quadrant pain -CT abd/pelvis showed no acute intra-abdominal pathology -Pain control: Morphine 1mg Q6H prn -Zofran 4mg Q4H prn nausea -Advance diet as tolerated Shortness of breath -Likely secondary to anxiety vs pain -O2 sats within normal range -CXR showing no active disease -Continue to monitor Diarrhea -C diff toxin/antigen ordered -Will consider starting pro-biotic after C diff results Hypomagnesemia/Hypophosphatemia -Continue to monitor Tobacco abuse/Marijuana abuse -Patient states that she wants to quit -Counselled on cessation -Nicotine patch -UTOX negative History of Fibromyalgia/Depression -Continue Cymbalta, Gabapentin, Seroquel GI/DVT ppx: Protonix 40mg PO daily SCDs Plan discussed with Dr Vesta Trinidad DO PGY-1 <Bao Lemons - Last Filed: 03/26/18 14:29> Objective - Vital Signs/Intake and Output Vital Signs (last 24 hours): Temp Pulse Resp BP Pulse Ox 100 F H 100 H 18 101/56 L 97 03/26/18 06:00 03/26/18 06:00 03/26/18 06:00 03/26/18 06:00 03/26/18 06:00 Intake and Output: 03/26/18 03/26/18 06:59 18:59 Intake Total 2770 Balance 2770 - Medications Medications: Current Medications Acetaminophen (Tylenol 325mg Tab) 650 mg PO Q6 PRN PRN Reason: Fever >100.4 F Last Admin: 03/25/18 20:53 Dose: 650 mg Acetaminophen (Tylenol 325mg Tab) 650 mg PO Q6H PRN PRN Reason: Pain, Mild (1-3) Last Admin: 03/26/18 13:34 Dose: 650 mg Duloxetine HCl (Cymbalta) 120 mg PO DAILY [facility] Last Admin: 03/26/18 09:21 Dose: 120 mg Gabapentin (Neurontin) 600 mg PO TID RENETTA PRN Reason: Protocol Last Admin: 03/26/18 13:42 Dose: 600 mg Meropenem (Merrem Iv 1 Gm Premix) 50 mls @ 100 mls/hr IVPB Q8 RENETTA PRN Reason: Protocol Last Admin: 03/26/18 13:42 Dose: 100 mls/hr Meloxicam (Mobic) 7.5 mg PO DAILY [facility] Last Admin: 03/26/18 09:21 Dose: 7.5 mg Morphine Sulfate (Morphine) 1 mg IVP Q6H PRN PRN Reason: Pain, moderate (4-7) Last Admin: 03/26/18 10:56 Dose: 1 mg Nicotine (Nicoderm Cq) 1 patch TD DAILY [facility] Last Admin: 03/26/18 09:25 Dose: 1 patch Ondansetron HCl (Zofran Inj) 4 mg IVP Q4H PRN PRN Reason: Nausea/Vomiting Pantoprazole Sodium (Protonix Ec Tab) 40 mg PO DAILY [facility] Last Admin: 03/26/18 09:25 Dose: 40 mg Quetiapine Fumarate (Seroquel) 25 mg PO TID [facility] PRN Reason: Protocol Last Admin: 03/26/18 13:41 Dose: 25 mg - Labs Labs: 03/26/18 07:00 03/26/18 07:00 PT 13.7 SECONDS (9.4-12.5) H 03/25/18 10:30 INR 1.19 (0.93-1.08) H 03/25/18 10:30 APTT 29.6 Seconds (25.1-36.5) 03/25/18 10:30 Attending/Attestation - Attestation I have personally seen and examined this patient.: Yes I have fully participated in the care of the patient.: Yes I have reviewed all pertinent clinical information, including history, physical exam and plan: Yes Notes (Text): 03/26/18 14:27 37 year old female with past medical history of fibromyalgia, depression, complicated hysterectomy with ureteral stent and recurrent UTI who presented with fever, lower abdominal pain, nausea, vomiting and diarrhea. UA was suggestive of UTI and she was started on iv antibiotics. CT abd/pelvis was negative for acute findings. Her symptoms and leukocytosis has improved although she continues to have fever overnight. ID is following. UCx/BCx are negative to date. Urology evaluation was also requested; will follow up with recommendations. Continue with home medications for fibromyalgia and depression. Bao Lemons MD Hospitalist.
[2018-03-26] MEDS: Sodium Chloride 0.9% 1,000 ML IV SCH (13:35)
[2018-03-26 23:29] LABS: URINE BILIRUBIN NEGATIVE (NEGATIVE); URINE BLOOD NEGATIVE (NEGATIVE); URINE GLUCOSE (UA) NEGATIVE (NEGATIVE); URINE LEUKOCYTE ESTERASE SMALL Leu/uL (NEGATIVE); URINE PROTEIN NEGATIVE mg/dL (<30 mg/dL); URINE UROBILINOGEN 0.2 E.U./dL (<1 E.U./dL)
[2018-03-26 23:39] LABS: URINE APPEARANCE CLEAR (CLEAR); URINE COLOR YELLOW (YELLOW)
[2018-03-26 23:45] LABS: URINE RBC 0 - 2 /hpf (0-2)
[2018-03-26 23:46] LABS: URINE BACTERIA RARE (NEG)
[2018-03-27] MEDS: Meropenem IV 1 gm in NS 50 ML IVPB SCH ×2 (06:00→13:21)
[2018-03-27 07:17] LABS: BASO # 0.04 K/mm3 (0.0-2.0); BASO % 0.4 % (0.0-3.0); EOS # 0.3 (0.0-0.7); EOS % 2.9 % (1.5-5.0); GRAN # 5.17 (1.4-6.5); GRAN % 58.2 % (50.0-68.0); HEMOGLOBIN 9.7 g/dL (12.0-16.0); LYMPH # 2.7 (1.2-3.4); LYMPH % 30.2 % (22.0-35.0); MEAN CELL VOLUME 84.8 fl (80.0-105.0); MEAN CORPUSCULAR HEMOGLOBIN 26.8 pg (25.0-35.0); MEAN CORPUSCULAR HGB CONC 31.6 g/dl (31.0-37.0); MEAN PLATELET VOLUME 11.6 fl (7.0-11.0); MONO # 0.7 (0.1-0.6); MONO % 8.3 % (1.0-6.0); RBC 3.62 10^6/uL (3.5-6.1); RED CELL DISTRIBUTION WIDTH 14.2 % (11.5-14.5); WHITE BLOOD COUNT 8.9 10^3/ul (4.5-11.0)
--- NOTE | 2018-03-27 07:17 | PN ---
DATE: 03/26/2018 SUBJECTIVE: Patient is in bed, in no acute distress, nontoxic, was seen earlier this morning, room 573, bed 1. PHYSICAL EXAMINATION: VITAL SIGNS: Temperature is 100 and T-max yesterday was 100.8, blood pressure is 103/60, respiratory rate of 18, heart rate of 100. HEENT: Unremarkable. NECK: Supple. LUNGS: Have decreased breath sounds. HEART: Normal S1, S2. ABDOMEN: Soft. LABORATORY DATA: Reveals a white count of 12,700, hemoglobin of 9, platelets of 234. Chemistries reveal a BUN of 3, creatinine of 0.7. Procalcitonin is 0.6. Urinalysis moderate leukocyte esterase . Microbiology reveals urine cultures has no growth. Blood culture has no growth. REVIEW OF ORDERS: Reveals the patient to be on meropenem. ASSESSMENT AND PLAN: A 37-year-old female with history of fibromyalgia, history of depression, history of recent vaginal hysterectomy, left-sided pyelonephritis and urinary tract infection with left ureteral stent after a bladder injury, and vaginal hysterectomy, fibromyalgia and patient currently on meropenem, day #number with negative blood cultures and negative-gram cultures. We will repeat urinalysis and urine culture. Continue on meropenem. Human immunodeficiency virus is pending. We will follow with you. Timi West MD
[2018-03-27 07:31] LABS: ALB/GLOB RATIO 1.1 (1.1-1.8); ALBUMIN 3.4 g/dL (3.0-4.8); ALT/SGPT 28 U/L (7-56); AST/SGOT 15 U/L (14-36); BLOOD UREA NITROGEN 5 mg/dL (7-21); CALCIUM 8.5 mg/dL (8.4-10.5); GFR AFRICAN-AMERICAN > 60; GFR NON-AFRICAN AMERICAN > 60
[2018-03-27] MEDS: Pantoprazole 40 mg EC Tab PO SCH (09:52)
[2018-03-27] MEDS: Meloxicam 7.5 MG TAB PO SCH (09:53)
[2018-03-27] MEDS ORDERED: POLYETHYLENE GLYCOL 3350 17 GM/Dose PACKET PO SCH (10:30)
[2018-03-27 15:02] VITALS: BP 106/67; PULSE 83; RESP 18; TEMP 98.5; O2SAT 99
--- NOTE | 2018-03-27 15:06 | CP.PCM.DIS ---
<Ashely Trinidad - Last Filed: 03/27/18 15:23> Provider - Provider Date of Admission: 03/25/18 12:51 Attending physician: Bao Lemons MD Consults: Urology: [place] ID: [id number] Time Spent in preparation of Discharge (in minutes): 32 Hospital Course - Lab Results Lab Results: Most Recent Lab Values WBC 8.9 10^3/ul (4.5-11.0) D 03/27/18 07:03 RBC 3.62 10^6/uL (3.5-6.1) 03/27/18 07:03 Hgb 9.7 g/dL (12.0-16.0) L 03/27/18 07:03 Hct 30.7 % (36.0-48.0) L 03/27/18 07:03 MCV 84.8 fl (80.0-105.0) 03/27/18 07:03 MCH 26.8 pg (25.0-35.0) 03/27/18 07:03 MCHC 31.6 g/dl (31.0-37.0) 03/27/18 07:03 RDW 14.2 % (11.5-14.5) 03/27/18 07:03 Plt Count 249 10^3/uL (120.0-450.0) 03/27/18 07:03 MPV 11.6 fl (7.0-11.0) H 03/27/18 07:03 Gran % 58.2 % (50.0-68.0) 03/27/18 07:03 Lymph % (Auto) 30.2 % (22.0-35.0) 03/27/18 07:03 [place] % (Auto) 8.3 % (1.0-6.0) H 03/27/18 07:03 Eos % (Auto) 2.9 % (1.5-5.0) 03/27/18 07:03 Baso % (Auto) 0.4 % (0.0-3.0) 03/27/18 07:03 Gran # 5.17 (1.4-6.5) 03/27/18 07:03 Lymph # (Auto) 2.7 (1.2-3.4) 03/27/18 07:03 [place] # (Auto) 0.7 (0.1-0.6) H 03/27/18 07:03 Eos # (Auto) 0.3 (0.0-0.7) 03/27/18 07:03 Baso # (Auto) 0.04 K/mm3 (0.0-2.0) 03/27/18 07:03 ESR 60 mm/hr (0.0-20.0) H 03/25/18 10:30 PT 13.7 SECONDS (9.4-12.5) H 03/25/18 10:30 INR 1.19 (0.93-1.08) H 03/25/18 10:30 APTT 29.6 Seconds (25.1-36.5) 03/25/18 10:30 pO2 173 mm/Hg (30-55) H 03/25/18 13:45 VBG pH 7.37 (7.32-7.43) 03/25/18 13:45 VBG pCO2 38.0 (40-60) L 03/25/18 13:45 VBG HCO3 22.0 mmol/l (21-28) 03/25/18 13:45 VBG Total CO2 23.2 mmol.L (22-28) 03/25/18 13:45 VBG O2 Sat (Calc) 100.1 % (40-65) H 03/25/18 13:45 VBG Base Excess -2.9 mmol/L (0.0-2.0) L 03/25/18 13:45 VBG Potassium 3.6 mmol/L (3.6-5.2) 03/25/18 13:45 Sodium 136.0 mmol/L (132-148) 03/25/18 13:45 Chloride 109.0 mmol/L (98-107) H 03/25/18 13:45 Glucose 99 mg/dl (65-105) 03/25/18 13:45 Lactate 1.5 mmol/L (0.7-2.1) 03/25/18 13:45 FiO2 21.0 % 03/25/18 13:45 Sodium 141 mmol/L (132-148) 03/27/18 07:03 Potassium 4.5 mmol/L (3.6-5.0) 03/27/18 07:03 Chloride 105 mmol/L (98-107) 03/27/18 07:03 Carbon Dioxide 27 mmol/L (21-33) 03/27/18 07:03 Anion Gap 13 (10-20) 03/27/18 07:03 BUN 5 mg/dL (7-21) L 03/27/18 07:03 Creatinine 0.6 mg/dl (0.7-1.2) L 03/27/18 07:03 Est GFR ( Amer) > 60 03/27/18 07:03 Est GFR (Non-Af Amer) > 60 03/27/18 07:03 Random Glucose 124 mg/dL (70-110) H 03/27/18 07:03 Calcium 8.5 mg/dL (8.4-10.5) 03/27/18 07:03 Phosphorus 3.4 mg/dL (2.5-4.5) 03/27/18 07:03 Magnesium 1.9 mg/dL (1.7-2.2) 03/27/18 07:03 Total Bilirubin 0.4 mg/dL (0.2-1.3) 03/27/18 07:03 AST 15 U/L (14-36) 03/27/18 07:03 ALT 28 U/L (7-56) 03/27/18 07:03 Alkaline Phosphatase 86 U/L (38-126) 03/27/18 07:03 Total Creatine Kinase 60 U/L (35-230) 03/25/18 10:30 Total Protein 6.6 g/dL (5.8-8.3) 03/27/18 07:03 Albumin 3.4 g/dL (3.0-4.8) 03/27/18 07:03 Globulin 3.2 gm/dL 03/27/18 07:03 Albumin/Globulin Ratio 1.1 (1.1-1.8) 03/27/18 07:03 Lipase 75 U/L (23-300) 03/25/18 10:30 Procalcitonin 0.06 NG/ML (0.19-0.49) L 03/25/18 11:00 Venous Blood Potassium 3.6 mmol/L (3.6-5.2) 03/25/18 13:45 Urine Color Yellow (YELLOW) 03/26/18 23:21 Urine Appearance Clear (CLEAR) 03/26/18 23:21 Urine pH 6.0 (4.7-8.0) 03/26/18 23:21 Ur Specific [place] 1.015 (1.005-1.035) 03/26/18 23:21 Urine Protein Negative mg/dL (<30 mg/dL) 03/26/18 23:21 Urine Glucose (UA) Negative mg/dL (NEGATIVE) 03/26/18 23:21 Urine Ketones Negative mg/dL (NEGATIVE) 03/26/18 23:21 Urine Blood Negative (NEGATIVE) 03/26/18 23:21 Urine Nitrate Negative (NEGATIVE) 03/26/18 23:21 Urine Bilirubin Negative (NEGATIVE) 03/26/18 23:21 Urine Urobilinogen 0.2 E.U./dL (<1 E.U./dL) 03/26/18 23:21 Ur Leukocyte Esterase Small Adriana/uL (NEGATIVE) H 03/26/18 23:21 Urine RBC 0 - 2 /hpf (0-2) 03/26/18 23:21 Urine WBC 2 - 5 /hpf (0-6) 03/26/18 23:21 Ur Epithelial Cells 1 - 3 /hpf (0-5) 03/26/18 23:21 Urine Bacteria Rare (NEG) 03/26/18 23:21 Urine Other Uyeast 03/25/18 10:30 Urine Opiates Screen Negative (NEGATIVE) 03/25/18 14:10 Urine Methadone Screen Negative (NEGATIVE) 03/25/18 14:10 Ur Barbiturates Screen Negative (NEGATIVE) 03/25/18 14:10 Ur Phencyclidine Scrn Negative (NEGATIVE) 03/25/18 14:10 Ur Amphetamines Screen Negative (NEGATIVE) 03/25/18 14:10 U Benzodiazepines Scrn Negative (NEGATIVE) 03/25/18 14:10 U Oth Cocaine Metabols Negative (NEGATIVE) 03/25/18 14:10 U Cannabinoids Screen Negative (NEGATIVE) 03/25/18 14:10 HIV 1&2 Ag/Ab, 4th Gen Nonreactive (Nonreactive) 03/26/18 05:00 - Hospital Course Hospital Course: History of Present Illness: Patient is a 37 year old female with past medical history of fibromyalgia, depression, recent hysterectomy complicated by bladder injury resulting in chronic quiroz that was removed and Left ureteral stent placement presents to [facility] [place] for fevers and body aches that started last night. Patient states that she took ibuprofen and measured her temp which was 101.3. Patient also reports having Left lower quadrant pain that started last night as well. This morning patient reports having one episode of nausea and bilious vomiting, with loose bowel movements x 3 days. Patient was recently admitted for complicated UTI earlier this month that failed outpatient therapy. Patient was discharged on PO Levaquin and completed the course of antibiotics. Patient was given referral to follow up with outpatient urology but has not followed up yet. She also admits to shortness of breath at this time. Able to speak in completed sentences. Denies headaches, dizziness, cp, palpitations, dysuria. Hospital Course: Patient was admitted for Sepsis, presumed source was UTI. Code sepsis was called. UA was positive for moderate Leukocyte esterase. Patient was started on IV antibiotics and IV fluids. ID was consulted, Urology was also consulted. CT abd/pelvis showed no acute intra-abdominal pathology. CXR showed no active disease. Urine cultures returned showing no growth. Blood cultures negative x 48 hours. Procalcitonin was low. Patient was clinically improving. Leukocytosis resolved, lactate normalized. Patient has been afebrile over 36 hours. On day of discharge patient was doing well. Ambulating and tolerating diet. Patient was complaining of constipation. Miralax was added. Patient was clear for discharge home by ID and Urology. Patient to follow up with Dr Hahn for cystoscopy outpatient this Sunday03/29/18. Patient to also follow up with PMD Dr Ninoska Vasquez within 1-2 weeks. Patient was prescribed Augmentin 1 tab Q12H and Doxycycline 100mg PO BID x 7 days. All questions and concerns were addressed. Discharge Medications: Augmentin 1 tab PO Q12H x 7 days Doxycycline 100mg PO Q12H x 7 days Miralax 17gm PO daily PRN constipation Discharge Exam - Head Exam Head Exam: ATRAUMATIC, NORMAL INSPECTION, NORMOCEPHALIC - Eye Exam Eye Exam: EOMI, Normal appearance Pupil Exam: NORMAL ACCOMODATION - ENT Exam ENT Exam: Mucous Membranes Moist - Neck Exam Neck exam: Full Rom - Respiratory Exam Respiratory Exam: Clear to PA & Lateral, NORMAL BREATHING PATTERN, UNREMARKABLE. absent: Rales, Rhonchi, Wheezes - Cardiovascular Exam Cardiovascular Exam: REGULAR RHYTHM, +S1, +S2 - GI/Abdominal Exam GI & Abdominal Exam: Normal Bowel Sounds, Soft, Unremarkable. absent: Guarding , Rebound, Rigid, Tenderness - Rectal Exam Rectal Exam: Deferred - Extremities Exam Extremities exam: normal inspection - Neurological Exam Neurological exam: Alert, CN II-XII Intact, Normal Gait, Oriented x3 - Psychiatric Exam Psychiatric exam: Normal Affect, Normal Mood - Skin Skin Exam: Dry, Normal Color, Warm Discharge Plan - Discharge Medications Prescriptions: Amoxicillin/Clavulanate [Augmentin 875 MG-125 MG Tab] 1 tab PO Q12 #14 tab Doxycycline Hyclate 100 mg PO BID #14 capsule Polyethylene Glycol 3350 [Miralax] 17 gm PO DAILY PRN #15 packet PRN Reason: Constipation - Follow Up Plan Condition: FAIR Disposition: HOME/ ROUTINE Instructions: Urinary Tract Infection in Women (DC), Leukocytosis (DC), Dysuria (GEN) Additional Instructions: 1. Patient is clear for discharge home 2. Please continue medications as prescribed 3. Please follow up with Dr Hahn, Urology, for cystoscopy outpatient on Sunday, his number was provided to you 4. Please follow up with PMD within 1-2 weeks 5. If having any worsening symptoms, return to nearest ER Referrals: Ninoska Vasquez MD [Family Provider] - Talon Hahn MD [Staff Provider] - <Bao Lemons - Last Filed: 03/28/18 07:31> Provider - Provider Date of Admission: 03/25/18 12:51 Attending physician: Bao Lemons MD Time Spent in preparation of Discharge (in minutes): 35 Hospital Course - Lab Results Lab Results: Most Recent Lab Values WBC 8.9 10^3/ul (4.5-11.0) D 03/27/18 07:03 RBC 3.62 10^6/uL (3.5-6.1) 03/27/18 07:03 Hgb 9.7 g/dL (12.0-16.0) L 03/27/18 07:03 Hct 30.7 % (36.0-48.0) L 03/27/18 07:03 MCV 84.8 fl (80.0-105.0) 03/27/18 07:03 MCH 26.8 pg (25.0-35.0) 03/27/18 07:03 MCHC 31.6 g/dl (31.0-37.0) 03/27/18 07:03 RDW 14.2 % (11.5-14.5) 03/27/18 07:03 Plt Count 249 10^3/uL (120.0-450.0) 03/27/18 07:03 MPV 11.6 fl (7.0-11.0) H 03/27/18 07:03 Gran % 58.2 % (50.0-68.0) 03/27/18 07:03 Lymph % (Auto) 30.2 % (22.0-35.0) 03/27/18 07:03 [place] % (Auto) 8.3 % (1.0-6.0) H 03/27/18 07:03 Eos % (Auto) 2.9 % (1.5-5.0) 03/27/18 07:03 Baso % (Auto) 0.4 % (0.0-3.0) 03/27/18 07:03 Gran # 5.17 (1.4-6.5) 03/27/18 07:03 Lymph # (Auto) 2.7 (1.2-3.4) 03/27/18 07:03 [place] # (Auto) 0.7 (0.1-0.6) H 03/27/18 07:03 Eos # (Auto) 0.3 (0.0-0.7) 03/27/18 07:03 Baso # (Auto) 0.04 K/mm3 (0.0-2.0) 03/27/18 07:03 ESR 60 mm/hr (0.0-20.0) H 03/25/18 10:30 PT 13.7 SECONDS (9.4-12.5) H 03/25/18 10:30 INR 1.19 (0.93-1.08) H 03/25/18 10:30 APTT 29.6 Seconds (25.1-36.5) 03/25/18 10:30 pO2 173 mm/Hg (30-55) H 03/25/18 13:45 VBG pH 7.37 (7.32-7.43) 03/25/18 13:45 VBG pCO2 38.0 (40-60) L 03/25/18 13:45 VBG HCO3 22.0 mmol/l (21-28) 03/25/18 13:45 VBG Total CO2 23.2 mmol.L (22-28) 03/25/18 13:45 VBG O2 Sat (Calc) 100.1 % (40-65) H 03/25/18 13:45 VBG Base Excess -2.9 mmol/L (0.0-2.0) L 03/25/18 13:45 VBG Potassium 3.6 mmol/L (3.6-5.2) 03/25/18 13:45 Sodium 136.0 mmol/L (132-148) 03/25/18 13:45 Chloride 109.0 mmol/L (98-107) H 03/25/18 13:45 Glucose 99 mg/dl (65-105) 03/25/18 13:45 Lactate 1.5 mmol/L (0.7-2.1) 03/25/18 13:45 FiO2 21.0 % 03/25/18 13:45 Sodium 141 mmol/L (132-148) 03/27/18 07:03 Potassium 4.5 mmol/L (3.6-5.0) 03/27/18 07:03 Chloride 105 mmol/L (98-107) 03/27/18 07:03 Carbon Dioxide 27 mmol/L (21-33) 03/27/18 07:03 Anion Gap 13 (10-20) 03/27/18 07:03 BUN 5 mg/dL (7-21) L 03/27/18 07:03 Creatinine 0.6 mg/dl (0.7-1.2) L 03/27/18 07:03 Est GFR ( Amer) > 60 03/27/18 07:03 Est GFR (Non-Af Amer) > 60 03/27/18 07:03 Random Glucose 124 mg/dL (70-110) H 03/27/18 07:03 Hemoglobin A1c 6.8 % (4.2-6.5) H 03/27/18 07:03 Calcium 8.5 mg/dL (8.4-10.5) 03/27/18 07:03 Phosphorus 3.4 mg/dL (2.5-4.5) 03/27/18 07:03 Magnesium 1.9 mg/dL (1.7-2.2) 03/27/18 07:03 Total Bilirubin 0.4 mg/dL (0.2-1.3) 03/27/18 07:03 AST 15 U/L (14-36) 03/27/18 07:03 ALT 28 U/L (7-56) 03/27/18 07:03 Alkaline Phosphatase 86 U/L (38-126) 03/27/18 07:03 Total Creatine Kinase 60 U/L (35-230) 03/25/18 10:30 Total Protein 6.6 g/dL (5.8-8.3) 03/27/18 07:03 Albumin 3.4 g/dL (3.0-4.8) 03/27/18 07:03 Globulin 3.2 gm/dL 03/27/18 07:03 Albumin/Globulin Ratio 1.1 (1.1-1.8) 03/27/18 07:03 Lipase 75 U/L (23-300) 03/25/18 10:30 Procalcitonin 0.06 NG/ML (0.19-0.49) L 03/25/18 11:00 Venous Blood Potassium 3.6 mmol/L (3.6-5.2) 03/25/18 13:45 Urine Color Yellow (YELLOW) 03/26/18 23:21 Urine Appearance Clear (CLEAR) 03/26/18 23:21 Urine pH 6.0 (4.7-8.0) 03/26/18 23:21 Ur Specific [place] 1.015 (1.005-1.035) 03/26/18 23:21 Urine Protein Negative mg/dL (<30 mg/dL) 03/26/18 23:21 Urine Glucose (UA) Negative mg/dL (NEGATIVE) 03/26/18 23:21 Urine Ketones Negative mg/dL (NEGATIVE) 03/26/18 23:21 Urine Blood Negative (NEGATIVE) 03/26/18 23:21 Urine Nitrate Negative (NEGATIVE) 03/26/18 23:21 Urine Bilirubin Negative (NEGATIVE) 03/26/18 23:21 Urine Urobilinogen 0.2 E.U./dL (<1 E.U./dL) 03/26/18 23:21 Ur Leukocyte Esterase Small Adriana/uL (NEGATIVE) H 03/26/18 23:21 Urine RBC 0 - 2 /hpf (0-2) 03/26/18 23:21 Urine WBC 2 - 5 /hpf (0-6) 03/26/18 23:21 Ur Epithelial Cells 1 - 3 /hpf (0-5) 03/26/18 23:21 Urine Bacteria Rare (NEG) 03/26/18 23:21 Urine Other Uyeast 03/25/18 10:30 Urine Opiates Screen Negative (NEGATIVE) 03/25/18 14:10 Urine Methadone Screen Negative (NEGATIVE) 03/25/18 14:10 Ur Barbiturates Screen Negative (NEGATIVE) 03/25/18 14:10 Ur Phencyclidine Scrn Negative (NEGATIVE) 03/25/18 14:10 Ur Amphetamines Screen Negative (NEGATIVE) 03/25/18 14:10 U Benzodiazepines Scrn Negative (NEGATIVE) 03/25/18 14:10 U Oth Cocaine Metabols Negative (NEGATIVE) 03/25/18 14:10 U Cannabinoids Screen Negative (NEGATIVE) 03/25/18 14:10 HIV 1&2 Ag/Ab, 4th Gen Nonreactive (Nonreactive) 03/26/18 05:00 Attending/Attestation - Attestation I have personally seen and examined this patient.: Yes I have fully participated in the care of the patient.: Yes I have reviewed all pertinent clinical information, including history, physical exam and plan: Yes Notes (Text): 03/27/18 37 year old female with past medical history of fibromyalgia, depression, complicated hysterectomy with ureteral stent and recurrent UTI who presented with fever, lower abdominal pain, nausea, vomiting and diarrhea. UA was suggestive of UTI and she was started on iv antibiotics. CT abd/pelvis was negative for acute findings. Her symptoms and leukocytosis has improved. She was afebrile ~36 hrs UCx/BCx were negative to date. She was being followed by ID and urology and cleared for discharge. Patient will be discharged on po antibiotics. Follow up with pmd. Follow up with urology this week for cystoscopy and possible removal of stent. A1c was 6.8. Counselled on diet and lifestyle modifications. Follow up with pmd to repeat A1c and monitor fingersticks. If still elevated consider initiation of metformin. Bao Lemons MD Hospitalist.
--- NOTE | 2018-03-27 20:43 | PN ---
DATE: 03/27/2018 SUBJECTIVE: The patient is in bed, in no acute distress, nontoxic. PHYSICAL EXAMINATION VITAL SIGNS: Temperature is 98, blood pressure is 106/70, respiratory rate of 18. HEENT: Unremarkable. NECK: Supple. LUNGS: Have decreased breath sounds. HEART: Normal S1 and S2. ABDOMEN: Soft. Nontender. LABORATORY DATA: Laboratory examination is reviewed. ASSESSMENT AND PLAN: A 37-year-old female seen earlier this morning, doing much better, fevers subsided, subsided, no obvious source and the patient with history of fibromyalgia, depression, recent vaginal hysterectomy, left-sided pyelonephritis, urinary tract infection, ureteral stent. Cultures negative. Discharge with p.o. antibiotics with close followup with Urology. Timi West MD
[2018-03-27] MEDS ORDERED: Amoxicillin-Clav 875-125 mg Tab PO SCH (22:00)
== END 2018-03-27 16:36 | disposition home or self-care (01) | DRG 901 ==
LOC: ED 09:56 → ERH 12:51 → 5RSO 14:39
PROVIDERS: ADMIT Internal Medicine; ATTEND Internal Medicine
DX: A41.9 Sepsis, unspecified organism (principal); N39.0 Urinary tract infection, site not specified; E03.9 Hypothyroidism, unspecified; E83.42 Hypomagnesemia; E83.39 Other disorders of phosphorus metabolism; M79.7 Fibromyalgia; F32.9 Major depressive disorder, single episode, unspecified; K59.00 Constipation, unspecified; R19.7 Diarrhea, unspecified; F17.210 Nicotine dependence, cigarettes, uncomplicated; F12.10 Cannabis abuse, uncomplicated; Z87.440 Personal history of urinary (tract) infections; Z90.710 Acquired absence of both cervix and uterus

== ENCOUNTER 2018-04-01 13:16 | Day surgery (SDC) | payer MEDICAID ==
[2018-04-01 14:33] VITALS: RESP 18; O2SAT 98
[2018-04-01] MEDS ORDERED: cefTRIAXone (Rocephin) 1 gm Inj ONE (17:42)
[2018-04-01] MEDS ORDERED: Iohexol 240 (50 ml) ONE (17:42)
[2018-04-01] MEDS ORDERED: Propofol 10 mg/ml Inj (20 ML) ONE (17:44)
[2018-04-01] MEDS ORDERED: Lidocaine 1% Inj (20ml) ONE (17:45)
[2018-04-01] MEDS ORDERED: HYDROmorphone 0.5 mg/0.5 ml ISec IVP PRN (18:13)
[2018-04-01] MEDS ORDERED: Lactated Ringer's 1,000 ML IV SCH (18:15)
[2018-04-01 18:22] VITALS: TEMP 97.1
[2018-04-01 19:04] VITALS: BP 115/77; PULSE 67
--- NOTE | 2018-04-02 09:26 | PN ---
DATE: 04/01/2018 IMMEDIATE POSTOP NOTE See the history and physical and operative note. This is an immediate postop note. The patient had a bladder injury and a retained stent. We have thus removed it. The patient is in the Recovery Room in stable condition. No complications are identified. The patient tolerated the procedure well without complications. Kane Hahn MD
--- NOTE | 2018-04-02 17:44 | HP ---
UROLOGY ADMISSION REASON FOR ADMISSION: Removal of stent. HISTORY OF PRESENT ILLNESS: Ms. Higgins is a very pleasant lady. She is currently being admitted. I met her last week on Sunday. She had had a previous hysterectomy with some bladder injury and a stent inserted in her left kidney. This was all done at the [facility]. She presented to [facility] last week as an emergency with flank pain and recurrent infections in her urine and is wanting her stent out and apparently according to her history having difficulty getting the stent removed. She was unsure exactly of the details. I discussed the options. We are actually going to do it the same day, but I wanted to get more medical explanation and details. Subsequently, she had to go home. This was on Sunday we met the patient on 03/27/2018, and then she had a trial on graduation on 03/28/2018. Then, we tried to discuss the options including returning to her primary physician. We discussed the options, she just wanted it out and for which we are going to make arrangements and remove it today. PAST MEDICAL AND SURGICAL HISTORY: As listed above. No history of an NE, CVA. SOCIAL HISTORY: Essentially unremarkable. She has 3 children. She is normally an chief administrative officer, currently not working. MEDICATIONS: See chart. ALLERGIES: . PHYSICAL EXAMINATION: GENERAL: Well-nourished female, in no apparent distress. VITAL SIGNS: Within normal limits in the chart. LUNGS: Clear. HEART: Normal S1, S2. ABDOMEN: Overall soft, nontender. No flank masses. PELVIC: Deferred. She had a cysto that I mentioned now. No pelvic or rectal masses are detected. LABORATORY DATA: See chart. DIAGNOSES: She is status post a hysterectomy with bladder injury. She has a stent in her left kidney. She is having flank pain and intermittent pain from this. We discussed the options and including the recommendation that she consider returning to the original doctor, but after discussing various options with the patient, she just wants the stent out. There was to take care of her. So we have made arrangements to remove her stent. Further plans will follow. PLAN: As follows today, 1. Antibiotic prophylaxis. 2. Cystoscopy. 3. Retrograde pyelogram assuming there are no injuries. We will plan to remove everything. I do want to explain that I explained to the patient she needs followup in case if there is any ureteral problem and then further plans will follow. Kane Hahn MD
--- NOTE | 2018-04-03 08:21 | OP ---
PROCEDURE DATE: 04/01/2018 UROLOGY OPERATIVE REPORT PREOPERATIVE DIAGNOSES: Bladder injury and retained stent. POSTOPERATIVE DIAGNOSES: Bladder injury and retained stent. PROCEDURE: Cystoscopy, removal of left double J-stent, left retrograde pyelogram. COMPLICATIONS: There were no complications. BLOOD LOSS: Less than 10 mL. FINDINGS: 1. Normal retrograde pyelogram on the left side. 2. No hydronephrosis. 3. No obvious bladder injuries, everything looks well healed. Bladder mucosa was within relatively normal limits. Pictures were taken and saved. INDICATIONS: See history and physical for further details. A very pleasant lady here for the above procedure. I do want to mention, I spoke to her previous Urologist. Who reported to me from the operative findings and also welcomed the patient to come back to his office. She presented last week as an emergency here and was looking for the stent to be removed immediately. See history and physical for further details, but spoke to the patient, had to go home for graduation, but we discussed options. Even today, I mentioned to her again returning to the primary doctor. . I spoke with him until we had completed the procedure as listed above. This is on an urgent basis. She is very uncomfortable with the stent and doubt that she wanted it removed. So after discussing all the various options, she is here for the above procedure. DESCRIPTION OF PROCEDURE: After obtaining informed consent, the patient was placed on the table. Routine monitors were placed. Time-out was called to confirm the patient positioning. Antibiotic prophylaxis was used. We introduced a cystoscope via urethra. We inspected the bladder carefully. There was no obvious bladder abnormalities. We now continued to work. We identified the old stent, took a picture, removed it. We are actually sending it for pathologic evaluation. The double J-stent removed since it was placed elsewhere. We did not put a wire up to the kidney without difficulty. We then did a retrograde pyelogram. Once, we evaluated the kidney, there is no hydronephrosis, there is multiple bleeding through the entire ureter. Multiple images were taken and saved. There were no abnormalities. There is no extravasation. There are no obvious abnormalities. There are no air bubbles. within normal limits. Overall, patient tolerated without complication. Bladder was emptied, cystoscope removed. Patient tolerated without complication. Kane Hahn MD [facility] # [id number]
--- NOTE | 2018-04-05 09:49 | RAD ---
PROCEDURE: Intraoperative Fluoroscopy. HISTORY: STENT REMOVAL / RETROGRADE PYELOGRAM (LEFT) FINDINGS: Fluoroscopic assistance was provided. Fluoroscopy time = 10 seconds. Radiation dose = 3.76 mGy. Please refer to the operative report from MERRITT Keller, , MD KATELYN.
== END 2018-04-01 20:21 | disposition home or self-care (01) ==
LOC: SDS 13:16 → 5RNO 19:14 → SDS 20:21
PROVIDERS: ATTEND Urology
DX: S37.10XA Unspecified injury of ureter, initial encounter (principal); Z90.710 Acquired absence of both cervix and uterus
CPT/HCPCS: 52310; 84703; 88300; C1758 ×2; C1769; J0696; J1170; J2405; J2704; J3010; J7120 ×2; Q9966

== ENCOUNTER 2018-09-19 20:02 | Emergency (ER) | payer MEDICAID ==
[2018-09-19 20:02] VITALS: BMI 29.9
[2018-09-19 20:11] VITALS: RESP 18; TEMP 97.9; O2SAT 100
[2018-09-19] MEDS ORDERED: Sodium Chloride 0.9% 1,000 ML IV STA (20:27)
--- NOTE | 2018-09-19 20:32 | ED PDOC ---
Arrival/HPI - General Chief Complaint: Weakness/Neurological Deficit Time Seen by Provider: 09/19/18 20:09 Historian: Patient - History of Present Illness Narrative History of Present Illness (Text): 09/19/18 20:28 37 year old female, whose past medical history includes depression and fibromyalgia, presents to the emergency department with generalized fatigue, for 3 days. Patient states the symptoms are typical of her fibromyalgia, but worse today. Patient also informs of excess sweat, and associated diarrhea for 2 days. Patient denies any smoking, alcohol, or drug use. Patient also denies any fevers, chills, abdominal pain, nausea, vomiting, urinary symptoms, or any other complaint. Time/Duration: < week (3 days) Symptom Onset: Gradual Symptom Course: Unchanged Past Medical History - Provider Review Nursing Documentation Reviewed: Yes - Infectious Disease Hx of Infectious Diseases: None - Cardiac Hx Cardiac Disorders: No - Pulmonary Hx Respiratory Disorders: No - Neurological Hx Neurological Disorder: No - HEENT Hx HEENT Disorder: No - Renal Hx Renal Disorder: No - Endocrine/Metabolic Hx Endocrine Disorders: Yes Hx Hypothyroidism: Yes - Hematological/Oncological Hx Blood Disorders: No - Integumentary Hx Dermatological Disorder: No - Musculoskeletal/Rheumatological Hx Musculoskeletal Disorders: No - Gastrointestinal Hx Gastrointestinal Disorders: No - Genitourinary/Gynecological Hx Genitourinary Disorders: No - Psychiatric Hx Psychophysiologic Disorder: No 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"("MEDICAL GRADE")) - Surgical History Hx Hysterectomy: Yes Other/Comment: uterine fibroids, foot surgery - Anesthesia Hx Anesthesia Reactions: No Hx Malignant Hyperthermia: No - Suicidal Assessment Feels Threatened In Home Enviroment: No Family/Social History - Physician Review Nursing Documentation Reviewed: Yes Family/Social History: No Known Family HX Smoking Status: Heavy Smoker > 10 Cigarettes Daily Hx Alcohol Use: No ("Sober for a year and a half") 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"("MEDICAL GRADE")) Allergies/Home Meds Allergies/Adverse Reactions: Allergies No Known Allergies Allergy (Verified 03/10/18 10:54) Home Medications: Home Meds Medication Instructions Recorded Confirmed DULoxetine [Cymbalta] 120 mg PO DAILY 03/10/18 04/01/18 Gabapentin [Neurontin] 600 mg PO TID 03/10/18 04/01/18 Meloxicam [Mobic] 7.5 mg PO DAILY 03/10/18 04/01/18 Quetiapine Fumarate [Seroquel] 25 mg PO TID 03/10/18 04/01/18 Review of Systems - Physician Review All systems were reviewed & negative as marked: Yes - Review of Systems Constitutional: Fatigue. absent: Fevers, Night Sweats Gastrointestinal: Diarrhea. absent: Abdominal Pain, Nausea, Vomiting Genitourinary Female: Normal. absent: Dysuria Physical Exam Vital Signs Reviewed: Yes Vital Signs Temp Pulse Resp BP Pulse Ox 09/19/18 20:11 97.9 F 86 18 131/87 100 Temperature: Afebrile Blood Pressure: Normal Pulse: Regular Respiratory Rate: Normal Appearance: Positive for: Well-Appearing, Non-Toxic, Comfortable Pain Distress: None Mental Status: Positive for: Alert and Oriented X 3 - Systems Exam Head: Present: Atraumatic, Normocephalic Pupils: Present: PERRL Extroacular Muscles: Present: EOMI Conjunctiva: Present: Normal Mouth: Present: Moist Mucous Membranes Neck: Present: Normal Range of Motion Respiratory/Chest: Present: Clear to Auscultation, Good Air Exchange. No: Respiratory Distress, Accessory Muscle Use Cardiovascular: Present: Regular Rate and Rhythm, Normal S1, S2. No: Murmurs Abdomen: No: Tenderness, Distention, Peritoneal Signs Back: Present: Normal Inspection Upper Extremity: Present: Normal Inspection. No: Cyanosis, Edema Lower Extremity: Present: Normal Inspection. No: Edema Neurological: Present: Speech Normal Skin: Present: Warm, Dry, Normal Color. No: Rashes Psychiatric: Present: Alert, Oriented x 3, Normal Insight, Normal Concentration Medical Decision Making ED Course and Treatment: 09/19/18 20:35 Impression: 37 year old female presents with generalized fatigue and diarrhea Plan: -- CMP, Lipase -- CBC -- Urine -- Urinalysis -- Reassess and disposition Prior Visits: Notes and results from previous visits were reviewed. Progress Notes: 09/19/18 22:39 Patient informs not taking her gabapentin today, and states she will take it when she gets home. Will give patient toradol and reassess for discharge. 09/19/18 23:05 Patient states feeling better and would like to go home. Patient is very well appearing and non-toxic. Vital signs are stable. I discussed the results of the work-up, diagnosis and treatment. Written discharge instructions were provided to patient. Additional verbal instructions were given and discussed with patient. We discussed the importance of follow up with PCP/consultants. I also reiterated reasons to immediately return to the ER including: worsening in current symptoms and/or new, continued, or concerning symptoms. Pt understood and agreed. - Scribe Statement The provider has reviewed the documentation as recorded by the Jackiibmulu Metzger Provider Scribe Attestation: All medical record entries made by the Scribe were at my direction and personally dictated by me. I have reviewed the chart and agree that the record accurately reflects my personal performance of the history, physical exam, medical decision making, and the department course for this patient. I have also personally directed, reviewed, and agree with the discharge instructions and disposition. Disposition/Present on Arrival - Present on Arrival Any Indicators Present on Arrival: No History of DVT/PE: No History of Uncontrolled Diabetes: No Urinary Catheter: No History of Decub. Ulcer: No History Surgical Site Infection Following: None - Disposition Have Diagnosis and Disposition been Completed?: Yes Diagnosis: Chronic pain, Diarrhea, Fatigue Disposition: HOME/ ROUTINE Disposition Time: 23:12 Patient Plan: Discharge Condition: IMPROVED Discharge Instructions (ExitCare): Diarrhea in Adolescents and Adults, Chronic Pain (DC), Fatigue (DC) Referrals: Ninoska Vasquez MD [Family Provider] - Follow up with primary Forms: [employer] ([place])
[2018-09-19 21:07] LABS: BASO # 0.06 K/mm3 (0.0-2.0); BASO % 0.5 % (0.0-3.0); EOS # 0.4 (0.0-0.7); EOS % 3.5 % (1.5-5.0); GRAN # 6.94 (1.4-6.5); HEMOGLOBIN 12.6 g/dL (12.0-16.0); LYMPH # 3.7 (1.2-3.4); LYMPH % 31.6 % (22.0-35.0); MEAN CELL VOLUME 87.9 fl (80.0-105.0); MEAN CORPUSCULAR HEMOGLOBIN 28.1 pg (25.0-35.0); MEAN PLATELET VOLUME 12.3 fl (7.0-11.0); MONO # 0.5 (0.1-0.6); MONO % 4.4 % (1.0-6.0); RBC 4.48 10^6/uL (3.5-6.1); RED CELL DISTRIBUTION WIDTH 14.8 % (11.5-14.5); WHITE BLOOD COUNT 11.6 10^3/uL (4.5-11.0)
[2018-09-19 21:09] LABS: URINE BILIRUBIN NEGATIVE (NEGATIVE); URINE BLOOD NEGATIVE (NEGATIVE); URINE GLUCOSE (UA) NEGATIVE (NEGATIVE); URINE LEUKOCYTE ESTERASE NEGATIVE Leu/uL (NEGATIVE); URINE PROTEIN NEGATIVE mg/dL (<30 mg/dL); URINE UROBILINOGEN 0.2 E.U./dL (<1 E.U./dL)
[2018-09-19 21:10] LABS: URINE APPEARANCE CLEAR (CLEAR); URINE COLOR LIGHT YELLOW (YELLOW)
[2018-09-19 21:49] LABS: BLOOD UREA NITROGEN 9 mg/dL (7-21); CALCIUM 9.4 mg/dL (8.4-10.5); GFR NON-AFRICAN AMERICAN > 60
[2018-09-19 21:50] LABS: ALB/GLOB RATIO 1.1 (1.1-1.8); ALT/SGPT 32 U/L (7-56); AST/SGOT 23 U/L (14-36); LIPASE 155 U/L (23-300)
[2018-09-19 22:50] VITALS: BP 124/85; PULSE 64
== END 2018-09-19 23:28 | disposition home or self-care (01) ==
LOC: ED 20:02
DX: G89.29 Other chronic pain (principal); R19.7 Diarrhea, unspecified; R53.83 Other fatigue; E03.9 Hypothyroidism, unspecified; F17.210 Nicotine dependence, cigarettes, uncomplicated; M79.7 Fibromyalgia
CPT/HCPCS: 80053; 81003; 83690; 85025; 96361; 96374; 99285; J1885; J7030